=== PATIENT | male | born 1960 | race Hispanic/Latino ===

== ENCOUNTER → 2018-03-10 | Day surgery (SDC) | payer BC ==
[~2018-03-10] MED LIST: ASPIR 8181 MG PO; AZOR PO; BENICAR20 MG PO; BUPIVACAINE 0.5%/EPI 30 ML SDV INJ ONE; BYSTOLIC10 MG PO; CEFAZOLIN SOD 2 GM/D5W 50ML 50 ML IV ONE; DEXAMETHASONE SOD PHOS INJ 4 MG/ML VIAL ONE; EPHEDRINE SULFATE INJ 50 MG/10 ML SYR ONE; FENTANYL CITRATE/PF 100MCG/2 ML INJ ONE; KETOROLAC TROMETHAMINE 30 MG/ML VIAL ONE; LIDOCAINE HCL 2% LOCAL INJ 5 ML SDV VIAL INJ ONE; LOSARTAN POTASS25 MG PO; MIDAZOLAM HCL 2 MG/2 ML VIAL ONE; ONDANSETRON HCL INJ 2 MG/ML VIAL ONE; PROPOFOL IV EMULSION 10 MG/ML 20 ML VIAL ONE; SEVOFLURANE INHAL SOLN 250 ML PEN BTL ONE
--- NOTE | 2018-03-10 13:03 | Operative Report ---
DATE OF PROCEDURE: March 10, 2018 PREOPERATIVE DIAGNOSES 1. Right knee medial meniscus tear. 2. Right knee degenerative joint disease of the knee. POSTOPERATIVE DIAGNOSES 1. Right knee medial meniscus tear. 2. Right knee degenerative joint disease of the knee. PROCEDURES PERFORMED 1. Right knee examination under anesthesia. 2. Right knee arthroscopy. 3. Right knee partial medial meniscectomy. 4. Right knee chondroplasties of the patella, trochlea, the medial femoral condyle, the medial tibial plateau. TICKET AGENT: None. ANESTHESIA: General endotracheal intubation anesthesia. IV FLUIDS: Per the anesthesia record. DESCRIPTION OF PROCEDURE AND FINDINGS: Mr. Mariano was taken to the operating room and placed in the supine position on the operating table. Following induction of general anesthesia as well as endotracheal intubation, the patient's right lower extremity was examined under anesthesia. He was found to have a mild effusion within the knee joint but an otherwise ligamentously stable knee. The patient's lower extremity was prepped and draped in the standard surgical fashion. A 2-portal technique was used to provide this patient arthroscopic evaluation of the knee joint. Examination of the suprapatellar pouch, medial and lateral gutters found no evidence of loose bodies. There was, however, evidence of chondromalacia of the patellar and trochlear surfaces. Scope was advanced to the medial compartment. Examination of the medial compartment demonstrated a torn and macerated medial meniscus. There was also chondromalacia of the articulating surfaces. A combination of biting forceps and motorized shaver was used to resect the torn portion of the meniscus. Chondroplasties of the medial femoral condyle and medial tibial plateau were performed at this time. Scope was advanced to the intercondylar notch. The anterior cruciate was identified and found to be intact. Scope was advanced in the lateral compartment, and there was no significant pathology. The scope was placed in the suprapatellar pouch, and chondroplasties of the patella and trochlea were performed. The knee was deflated of its sterile normal saline. Each of the portal sites were closed using 4-0 nylon suture. Portal sites as well as knee itself were injected with 0.5% Marcaine with epinephrine. Sterile dressings were applied. The patient was awakened and taken to the postanesthesia care unit in stable condition. Job#: [id number]
== END | disposition home or self-care (01) ==
LOC: OR 05:26
PROVIDERS: ATTEND Specialist
DX: S83.221A Peripheral tear of medial meniscus, current injury, right knee, initial encounter (principal); M17.11 Unilateral primary osteoarthritis, right knee; M22.41 Chondromalacia patellae, right knee; Z96.652 Presence of left artificial knee joint; I10 Essential (primary) hypertension; I44.7 Left bundle-branch block, unspecified; Z01.810 Encounter for preprocedural cardiovascular examination; Z79.82 Long term (current) use of aspirin; Z68.41 Body mass index [BMI] 40.0-44.9, adult
CPT/HCPCS: 29881; 93005; J1100; J1885; J2001; J2250; J2405

== ENCOUNTER 2019-02-24 19:24 | Emergency (ER) | payer BC ==
[~2019-02-24] VITALS: Ht 167.6 cm; Wt 108.9 kg
[~2019-02-24 19:24] MED LIST changes: -BUPIVACAINE 0.5%/EPI 30 ML SDV INJ ONE; -CEFAZOLIN SOD 2 GM/D5W 50ML 50 ML IV ONE; -DEXAMETHASONE SOD PHOS INJ 4 MG/ML VIAL ONE; -EPHEDRINE SULFATE INJ 50 MG/10 ML SYR ONE; -FENTANYL CITRATE/PF 100MCG/2 ML INJ ONE; -KETOROLAC TROMETHAMINE 30 MG/ML VIAL ONE; -LIDOCAINE HCL 2% LOCAL INJ 5 ML SDV VIAL INJ ONE; -MIDAZOLAM HCL 2 MG/2 ML VIAL ONE; -ONDANSETRON HCL INJ 2 MG/ML VIAL ONE; -PROPOFOL IV EMULSION 10 MG/ML 20 ML VIAL ONE; -SEVOFLURANE INHAL SOLN 250 ML PEN BTL ONE
--- OUTSIDE RECORDS SUMMARY | 2019-02-24 19:27 | XMS REPORT | Continuity of Care Document ---
Author Author [facility] Interface Address Unknown Phone Unavailable Problems Problem Status Onset Date Classification Date Reported Comments Source UNK Active 03/12/2016 [facility] Arthritis<sup>1</sup> Active Problem 07/05/2016 left knee [facility] [place] Hypertension Active Problem 07/05/2016 [facility] [place] Final: Other infective bursitis, right elbow 03/30/2016 [facility]- LT TKR Active [facility] [place] OTHER INFECTIVE BURSITIS, LEFT KNEE Active [facility] OTHER INFECTIVE BURSITIS, RIGHT ELBOW Active [facility] LT KNEE Active [facility] [place] LEFT KNEE Active [facility] [place] ADHESIVE CAPSULITIS OF RIGHT SHOULDER Active [facility] COMPLETE ROTATR-CUFF TEAR/RUPTR OF R LUCINDA Active [facility] JOINT CAMP Active [facility] [place] Medications Medication Details Route Status Patient Instructions Ordering Provider Order Date Source Benicar 40 mg, 2 tab, Route: PO, Drug form: TAB, Daily, Start date: 03/27/16 13:00:00 CDT, Duration: 30 day, Stop date: 04/26/16 9:00:00 CDT Inactive 03/27/2016 [facility] hydrochlorothiazide 25 mg oral tablet 25 mg, 1 tab, Route: PO, Drug form: TAB, Daily, Start date: 03/27/16 13:00:00 CDT, Duration: 30 day, Stop date: 04/26/16 9:00:00 CDTNotes: (Same as: Hydrodiuril) With food. Inactive 03/27/2016 [facility] Dulcolax Laxative 5 mg, 1 tab, Route: PO, Drug form: ECTAB, Q6H, Dosing Weight 118.182, kg, PRN Constipation, Start date: 03/27/16 12:29:00 CDT, Duration: 30 day, Stop date: 04/26/16 12:28:00 CDTNotes: (Same As: Dulcolax , Correctol) (Do Not Crush) "Do Not Crush" Inactive 03/27/2016 [facility] Hydrochlorothiazide 25 MG / Olmesartan medoxomil 40 MG Oral Tablet [Benicar HCT 40/25] 1 tab, Route: PO, Drug Form: TAB, Dosing Weight 118.182, kg, Daily, NOW, Start date: 03/27/16 12:24:00 CDT, Duration: 30 day, Stop date: 04/26/16 9:00:00 CDT Inactive 03/27/2016 [facility] Acetaminophen 325 MG / Hydrocodone Bitartrate 7.5 MG Oral Tablet [Yale 7.5/325] See Instructions, 1-2 tab PO Q4-6H as needed, # 60 tab, 0 Refill(s), given to patient Active 03/27/2016 [facility] Acetaminophen 325 MG / Hydrocodone Bitartrate 7.5 MG Oral Tablet [Yale 7.5/325] 1 tab, Route: PO, Drug Form: TAB, Dosing Weight 118.182, kg, Q4H, PRN Pain Score 4-6, Start date: 03/27/16 8:47:00 CDT, Duration: 30 day, Stop date: 04/26/16 8:46:00 CDTNotes: Same as Yale 325-7.5mg Do not exceed 4gm/day of acetaminophen. Inactive 03/27/2016 [facility] Phenergan 25 mg, 1 mL, Route: IVPB, Q4H, Dosing Weight 118.182, kg, PRN Itching, Start date: 03/26/16 12:37:00 CDT, Duration: 3 day, Stop date: 03/29/16 12:36:00 CDTNotes: Do not give IV push. (Same as: Phene rgan) No Longer Active 03/26/2016 [facility] Bystolic 10 mg, 1 tab, Route: PO, Drug form: TAB, Daily, Dosing Weight 118.182, kg, Start date: 03/26/16 9:00:00 CDT, Duration: 30 day, Stop date: 04/24/16 9:00:00 CDTNotes: (same as: Bystolic) No Longer Active 03/26/2016 [facility] Acetaminophen 325 MG / Hydrocodone Bitartrate 7.5 MG Oral Tablet [Yale 7.5/325] 2 tab, Route: PO, Drug Form: TAB, Dosing Weight 118.182, kg, Q4H, PRN Pain Score 7-10, Start date: 03/26/16 7:54:00 CDT, Duration: 1 day, Stop date: 03/27/16 7:53:00 CDTNotes: Same as Yale 325-7.5mg Do not exceed 4gm/day of acetaminophen. No Longer Active 03/26/2016 [facility] Enoxaparin 40 mg, Route: SUB-Q, Drug form: INJ, [id number], Dosing Weight 118.182, kg, Consider for obese patients, Start date: 03/26/16 1:43:00 CDT, Duration: 30 day, Stop date: 04/24/16 13:43:00 CDT No Longer Active 03/26/2016 [facility] Ambien 5 mg, 1 tab, Route: PO, Drug form: TAB, Bedtime, Start date: 03/25/16 21:00:00 CDT, Duration: 30 day, Stop date: 04/23/16 21:00:00 CDTNotes: (Same As: Ambien) No Longer Active 03/26/2016 [facility] Lunesta 3 mg, Route: PO, Bedtime, Dosing Weight 118.182, kg, Start date: 03/25/16 21:00:00 CDT, Duration: 30 day, Stop date: 04/23/16 21:00:00 CDT Inactive 03/26/2016 [facility] ceFAZolin (SCIP) 1 gm, 100 mL, Route: IVPB, Drug form: INJ, Q6H, Dosing Weight 118.182, kg, Start date: 03/25/16 18:00:00 CDT, Duration: 3 doses or times, Stop date: 03/26/16 6:00:00 CDT No Longer Active 03/25/2016 [facility] Docusate 100 mg, 1 cap, Route: PO, Drug form: CAP, BID, Dosing Weight 118.182, kg, Start date: 03/25/16 17:00:00 CDT, Duration: 30 day, Stop date: 04/24/16 9:00:00 CDTNotes: (Same as: Colace) (Do Not Crush) No Longer Active 03/25/2016 [facility] ondansetron (ANES) Route: IV, Drug form: INJ, ONCE, Stop date: 03/25/16 14:00:00 CDT Inactive 03/25/2016 [facility] Hydromorphone 15 mg, 30 mL, Route: IV, Initial Loading Dose: 0 mg, METAL HARDENER Dose: 0.2 mg, METAL HARDENER Lockout: 8 minutes, Continuous Basal Rate: 0 mg, 4 Hour Limit (In MG): 6, Drug Form: INJ, Continuous, Start date: 03/25/16 1 4:00:00 CDT, Duration: 30 day, Stop date: 04/24/16 1...Notes: (Same as: Dilaudid) conc=0.5 mg/ml Hydromorphone METAL HARDENER Dose: ;Delay: ;Basal: No Longer Active 03/25/2016 [facility] Enoxaparin 30 mg, 0.3 mL, Route: SUB-Q, Drug form: INJ, [id number], Dosing Weight 118.182, kg, Start date: 03/25/16 14:00:00 CDT, Duration: 30 day, Stop date: 04/24/16 6:00:00 CDTNotes: (Same as: Lovenox) No Longer Active 03/25/2016 [facility] tranexamic acid (ANES) Route: IV, Drug form: INJ, ONCE, Stop date: 03/25/16 13:55:00 CDT Inactive 03/25/2016 [facility] Hydromorphone 0.3 mg, 0.3 mL, Route: IVP, Drug form: INJ, Q4H, Dosing Weight 118.182, kg, PRN Pain Score 7-10, Start date: 03/25/16 13:41:00 CDT, Duration: 30 day, Stop date: 04/24/16 13:40:00 CDT No Longer Active 03/25/2016 [facility] Ondansetron 4 mg, 2 mL, Route: IVP, Drug form: INJ, Q8H, Dosing Weight 118.182, kg, PRN Nausea & Vomiting, Start date: 03/25/16 13:41:00 CDT, Duration: 30 day, Stop date: 04/24/16 13:40:00 CDTNotes: (Same as: Zofran) MEDICATION WASTE Product Size: 4 mg Product Wasted: ___ mg No Longer Active 03/25/2016 [facility] Diphenhydramine 50 mg, 1 cap, Route: PO, Drug form: CAP, Q6H, Dosing Weight 118.182, kg, PRN Itching, Start date: 03/25/16 13:41:00 CDT, Stop date: 04/24/16 13:40:00 CDTNotes: (Same as: Benadryl) No Longer Active 03/25/2016 [facility] Al hydroxide/Mg hydroxide/simethicone 200 mg-200 mg-20 mg/5 mL oral suspension 30 mL, Route: PO, Drug Form: SUSP, Dosing Weight 118.182, kg, Q4H, PRN Indigestion, Start date: 03/25/16 13:41:00 CDT, Duration: 30 day, Stop date: 04/24/16 13:40:00 CDTNotes: (aluminum hydroxide-magnesium hyd- simethicone [phone]/5ml 30 ml ud BEAU) No Longer Active 03/25/2016 [facility] Naloxone 0.04 mg, 0.1 mL, Route: IVP, Drug form: INJ, Q2MIN, Dosing Weight 118.182, kg, PRN Narcotic Reversal, Start date: 03/25/16 13:41:00 CDT, Duration: 30 day, Stop date: 04/24/16 13:40:00 CDTNotes: Same as Narcan No Longer Active 03/25/2016 [facility] Acetaminophen 325 MG / Hydrocodone Bitartrate 7.5 MG Oral Tablet [Yale 7.5/325] 2 tab, Route: PO, Drug Form: TAB, Dosing Weight 118.182, kg, Q4H, PRN Pain Score 7-10, Start date: 03/25/16 13:41:00 CDT, Duration: 30 day, Stop date: 04/24/16 13:40:00 CDTNotes: Same as Yale 325-7.5mg Do not exceed 4gm/day of acetaminophen. No Longer Active 03/25/2016 [facility] Tylenol 650 mg, 2 tab, Route: PO, Drug form: TAB, Q6H, Dosing Weight 118.182, kg, PRN For Temp > 100.4 F, Start date: 03/25/16 13:41:00 CDT, Duration: 30 day, Stop date: 04/24/16 13:40:00 CDTNotes: Do not exceed 4 gm/day. (Same as: Tylenol) No Longer Active 03/25/2016 [facility] Lactated Ringers 1,000 mL 1,000 mL, Rate: 75 ml/hr, Infuse over: 13.3 hr, Route: IV, Dosing Weight 118.182 kg, Total Volume: 1,000, Start date: 03/25/16 13:41:00 CDT, Duration: 30 day, Stop date: 04/24/16 13:40:00 CDT No Longer Active 03/25/2016 [facility] hydromorphone (ANES) Route: INTRATHECAL, Drug form: INJ, ONCE, Stop date: 03/25/16 13:39:00 CDT Inactive 03/25/2016 [facility] acetaminophen (ANES) Route: IV, Drug form: INJ, ONCE, Stop date: 03/25/16 13:29:00 CDT Inactive 03/25/2016 [facility] ePHEDrine (ANES) Route: IV, Drug form: INJ, ONCE, Stop date: 03/25/16 13:24:00 CDT Inactive 03/25/2016 [facility] ceFAZolin (ANES) Route: IV, Drug form: INJ, ONCE, Stop date: 03/25/16 13:19:00 CDT Inactive 03/25/2016 [facility] lidocaine (ANES) Route: IV, Drug form: INJ, ONCE, Stop date: 03/25/16 13:19:00 CDT Inactive 03/25/2016 [facility] propofol (ANES) Route: IV, Drug form: INJ, ONCE, Stop date: 03/25/16 13:19:00 CDT Inactive 03/25/2016 [facility] LR 1000 mL INJ (ANES) Route: IV, Total Volume: 1,000, Start date: 03/25/16 12:18:00 CDT, Stop date: 03/25/16 13:18:00 CDT Inactive 03/25/2016 [facility] Ancef 2 gm, 100 mL, Route: IVPB, Drug form: INJ, ONCE, Dosing Weight 118.182, kg, Start date: 03/25/16 9:12:00 CDT, Duration: 1 doses or times, Stop date: 03/25/16 9:12:00 CDTNotes: Same as: Ancef Inactive 03/25/2016 [facility] Calcium Chloride 0.0014 MEQ/ML / Potassium Chloride 0.004 MEQ/ML / Sodium Chloride 0.103 MEQ/ML / Sodium Lactate 0.028 MEQ/ML Injectable Solution 1,000 mL, Rate: 25 ml/hr, Infuse over: 40 hr, Route: IV, Dosing Weight 118.182 kg, Total Volume: 1,000, Start date: 03/25/16 9:10:00 CDT, Duration: 30 day, Stop date: 04/24/16 9:09:00 CDT Inactive 03/25/2016 [facility] Diazepam 5 MG Oral Tablet [Valium] 5 mg=1 tab, PO, QID, PRN Spasm, # 30 tab, 0 Refill(s) Active 03/25/2016 [facility] 0.3 ML Enoxaparin sodium 100 MG/ML Prefilled Syringe [Lovenox] 30 mg, SUB-Q, Q12H, X 14 day, # 28 inj, 0 Refill(s) Active 03/25/2016 [facility] Eszopiclone 3 MG Oral Tablet [Lunesta] 3 mg=1 tab, PO, Bedtime, PRN for insomnia, # 30 tab, 0 Refill(s) Active 03/25/2016 [facility] Cephalexin 500 MG Oral Capsule [Keflex] 500 mg=1 cap, PO, QID, X 10 day, # 40 cap, 0 Refill(s) Active 03/25/2016 [facility] Hydrochlorothiazide 25 MG / Olmesartan medoxomil 40 MG Oral Tablet [Benicar HCT 40/25] 1 tab, PO, Daily, # 30 tab, 0 Refill(s) Active 03/13/2016 [facility] nebivolol 10 MG Oral Tablet [Bystolic] 10 mg=1 tab, PO, Daily, # 30 tab, 0 Refill(s) Active 03/13/2016 [facility] Ketorolac 15 mg, 1 mL, Route: IVP, Drug form: INJ, Q6H, Dosing Weight 118.182, kg, Start date: 12/20/15 12:00:00, Duration: 6 doses or times, Stop date: 12/21/15 18:00:00Notes: (Same as:Toradol) IV bolus must be given >15 seconds. Give IM administration slowly and deeply into the muscle. Not for use > 4 days. Inactive 12/20/2015 [facility] Flumazenil 0.2 mg, 2 mL, Route: IVP, Drug form: INJ, PRN, Dosing Weight 118.182, kg, PRN Benzodiazepine Reversal, Initial dose, Start date: 12/20/15 8:02:00, Duration: 30 day, Stop date: 01/19/16 8:01:00Notes: (Same as: Romazicon) Inactive 12/20/2015 [facility] Naloxone 0.04 mg, 0.1 mL, Route: IVP, Drug form: INJ, Q2MIN, Dosing Weight 118.182, kg, PRN Narcotic Reversal, Start date: 12/20/15 8:02:00, Duration: 8 doses or times, Stop date: Limited # of timesNotes: Same as Narcan Inactive 12/20/2015 [facility] Oxycodone 5 mg, 1 tab, Route: PO, Drug form: TAB, Q4H, Dosing Weight 118.182, kg, PRN Pain Score 4-6, Start date: 12/20/15 8:02:00, Duration: 30 day, Stop date: 01/19/16 8:01:00Notes: (Same as: Roxicodone) Inactive 12/20/2015 [facility] Ketorolac 15 mg, 1 mL, Route: IVP, Drug form: INJ, ONCE, Dosing Weight 118.182, kg, Start date: 12/20/15 8:02:00, Duration: 1 doses or times, Stop date: 12/20/15 8:02:00Notes: (Same as:Toradol) IV bolus must be given >15 seconds. Give IM administration slowly and deeply into the muscle. Not for use > 4 days. Inactive 12/20/2015 [facility] Fentanyl 50 microgram, 1 mL, Route: IVP, Drug form: INJ, Q5Min, Dosing Weight 118.182, kg, PRN Pain Score 7-10, Start date: 12/20/15 8:02:00, Duration: 2 doses or times, Stop date: Limited # of timesNotes: (Same as: Sublimaze) Preservative free. Inactive 12/20/2015 [facility] Hydromorphone 0.5 mg, 0.5 mL, Route: IVP, Drug form: INJ, Q5Min, Dosing Weight 118.182, kg, PRN Pain Score 7-10, Start date: 12/20/15 8:02:00, Duration: 4 doses or times, Stop date: Limited # of times Inactive 12/20/2015 [facility] Ondansetron 4 mg, 2 mL, Route: IVP, Drug form: INJ, ONCE, Dosing Weight 118.182, kg, PRN Nausea & Vomiting, Start date: 12/20/15 8:02:00Notes: (Same as: Zofran) MEDICATION WASTE Product Size: 4 mg Product Wasted: ___ mg Inactive 12/20/2015 [facility] Hydralazine 10 mg, 0.5 mL, Route: IVP, Drug form: INJ, Q20Min, Dosing Weight 118.182, kg, PRN Elevated BP, Start date: 12/20/15 8:02:00, Duration: 2 doses or times, Stop date: Limited # of timesNotes: (Same as: Apresoline) Push over 5 minutes Inactive 12/20/2015 [facility] Labetalol 10 mg, 2 mL, Route: IVP, Drug form: INJ, Q5Min, Dosing Weight 118.182, kg, PRN Elevated BP, Start date: 12/20/15 8:02:00, Duration: 5 doses or times, Stop date: Limited # of timesNotes: (Same as: Normod yne, Trandate) Push over 2 minutes Give bolus over 2-3 minutes. Inactive 12/20/2015 [facility] ePHEDrine (ANES) Route: IV, Drug form: INJ, ONCE, Stop date: 12/20/15 7:05:00 Inactive 12/20/2015 [facility] ketOROLAC (ANES) IV, ONCE Inactive 12/20/2015 [facility] Morphine 2 mg, 1 mL, Route: IVP, Drug form: INJ, Q3H, Dosing Weight 118.182, kg, PRN Pain Score 1-3, Start date: 12/20/15 7:02:00, Duration: 30 day, Stop date: 01/19/16 7:01:00Notes: (Same as:MORPhine Sulfate) Inactive 12/20/2015 [facility] Hydromorphone 0.3 mg, 0.3 mL, Route: IVP, Drug form: INJ, Q3H, Dosing Weight 118.182, kg, PRN Pain Score 4-6, Start date: 12/20/15 7:02:00, Duration: 30 day, Stop date: 01/19/16 7:01:00 Inactive 12/20/2015 [facility] Acetaminophen 325 MG / Hydrocodone Bitartrate 5 MG Oral Tablet 1 tab, Route: PO, Drug Form: TAB, Dosing Weight 118.182, kg, Q4H, PRN Pain Score 4-6, Start date: 12/20/15 7:02:00, Duration: 30 day, Stop date: 01/19/16 7:01:00Notes: (Same as: Yale 325/5) Do not exceed 4gm/day of acetaminophen. Inactive 12/20/2015 [facility] Phenergan 12.5 mg, 0.5 mL, Route: IVPB, Q4H, Dosing Weight 118.182, kg, PRN Nausea & Vomiting, Start date: 12/20/15 7:02:00, Duration: 30 day, Stop date: 01/19/16 7:01:00Notes: Do not give IV push. (Same as: Phenergan) Inactive 12/20/2015 [facility] Zofran 4 mg, 2 mL, Route: IV, Drug form: INJ, Q4H, Dosing Weight 118.182, kg, PRN Nausea, Start date: 12/20/15 7:02:00, Duration: 30 day, Stop date: 01/19/16 7:01:00Notes: (Same as: Zofran) MEDICATION WASTE Product Size: 4 mg Product Wasted: ___ mg Inactive 12/20/2015 [facility] Tramadol 50 mg, 1 tab, Route: PO, Drug form: TAB, Q6H, Dosing Weight 118.182, kg, PRN Pain Score 1-3, Start date: 12/20/15 7:02:00, Duration: 30 day, Stop date: 01/19/16 7:01:00Notes: Not to exceed 400mg/day. (Same As: Ultram) Inactive 12/20/2015 [facility] ondansetron (ANES) Route: IV, Drug form: INJ, ONCE, Stop date: 12/20/15 7:01:00 Inactive 12/20/2015 [facility] fentaNYL (ANES) Route: IV, Drug form: INJ, ONCE, Stop date: 12/20/15 6:51:00 Inactive 12/20/2015 [facility] propofol (ANES) Route: IV, Drug form: INJ, ONCE, Stop date: 12/20/15 6:51:00 Inactive 12/20/2015 [facility] midazolam (ANES) Route: IV, Drug form: SOLN, ONCE, Stop date: 12/20/15 6:51:00 Inactive 12/20/2015 [facility] lidocaine (ANES) Route: IV, Drug form: INJ, ONCE, Stop date: 12/20/15 6:51:00 Inactive 12/20/2015 [facility] ceFAZolin (ANES) Route: IV, Drug form: INJ, ONCE, Stop date: 12/20/15 6:51:00 Inactive 12/20/2015 [facility] Calcium Chloride 0.0014 MEQ/ML / Potassium Chloride 0.004 MEQ/ML / Sodium Chloride 0.103 MEQ/ML / Sodium Lactate 0.028 MEQ/ML Injectable Solution 1,000 mL, Rate: 25 ml/hr, Infuse over: 40 hr, Route: IV, Dosing Weight 118.182 kg, Total Volume: 1,000, Start date: 12/20/15 6:46:00, Duration: 30 day, Stop date: 01/19/16 6:45:00 Inactive 12/20/2015 [facility] Lactated Ringers Injection IV (ANES) (ANES) Route: IV, Total Volume: 1,000, Start date: 12/20/15 6:17:00, Stop date: 12/20/15 7:17:00 Inactive 12/20/2015 [facility] Cephalexin 500 MG Oral Capsule [Keflex] 500 mg=1 cap, PO, QID, X 10 day, # 40 cap, 0 Refill(s) Active 12/20/2015 [facility] Ancef 2 gm, 100 mL, Route: IVPB, Drug form: INJ, ONCE, Dosing Weight 118.182, kg, Start date: 12/20/15 5:20:00, Duration: 1 doses or times, Stop date: 12/20/15 5:20:00Notes: Same as: Ancef Inactive 12/20/2015 [facility] Allopurinol 0 Refill(s) Active 12/11/2015 [facility] Allergies, Adverse Reactions, Alerts Substance Category Reaction Severity Reaction type Status Date Reported Comments Source Immunizations Immunization Date Given Site Status Last Updated Comments Source pneumococcal 23-valent vaccine 03/27[facility]2016 [facility] Results Order Name Results Value Reference Range Date Interpretation Comments Source HEMATOLOGY Lymphocytes 15.4 % 20.0 - 40.0 03/27/2016 [facility] HEMATOLOGY Monocytes 11.5 % 2.0 - 12.0 03/27/2016 [facility] HEMATOLOGY Basophils 0.6 % 0.0 - 1.0 03/27/2016 [facility] Segs-Bands # 8.5 K/CMM 1.5 - 8.1 03/27/2016 [facility] Eosinophils 0.9 % 0.0 - 4.0 03/27/2016 [facility] Lymphocytes # 1.8 K/CMM 1.0 - 5.5 03/27/2016 [facility] Monocytes # 1.4 K/CMM 0.0 - 0.8 03/27/2016 [facility] Eosinophils # 0.1 K/CMM 0.0 - 0.5 03/27/2016 [facility] Basophils # 0.1 K/CMM 0.0 - 0.2 03/27/2016 [facility] Segs 71.6 % 45.0 - 75.0 03/27/2016 [facility] WBC 11.8 K/CMM 3.7 - 10.4 03/27/2016 [facility] Platelet 156 K/CMM 133 - 450 03/27/2016 [facility] MPV 8.6 fL 7.4 - 10.4 03/27/2016 [facility] RBC 3.83 M/CMM 4.70 - 6.10 03/27/2016 [facility] Hgb 11.4 g/dL 14.0 - 18.0 03/27/2016 [facility] Hct 34.8 % 42.0 - 54.0 03/27/2016 [facility] MCV 90.8 fL 80.0 - 94.0 03/27/2016 [facility] MCH 29.7 pg 27.0 - 31.0 03/27/2016 [facility] MCHC 32.7 g/dL 32.0 - 36.0 03/27/2016 [facility] RDW 13.6 % 11.5 - 14.5 03/27/2016 [facility] CHEM PANEL eGFR 57 mL/min/1.73m2 03/26/2016 Result Comment: The eGFR is calculated using the CKD-EPI formula. In most young, healthy individuals the eGFR will be >90 mL/min/1.73m2. The eGFR declines with age. An eGFR of 60-89 may be normal in some populations, particularly the elderly, for whom the CKD-EPI formula has not been extensively validated. Use of the eGFR is not recommended in the following populations: Individuals with unstable creatinine concentrations, including patients and those with serious co-morbid conditions. Patients with extremes in muscle mass or diet. The data above are obtained from the National Kidney Disease Education Program (NKDEP) which additionally recommends that when the eGFR is used in patients with extremes of body mass index for purposes of drug dosing, the eGFR should be multiplied by the estimated BMI. [facility] CHEM PANEL Creatinine Lvl 1.36 mg/dL 0.50 - 1.40 03/26/2016 [facility] Lymphocytes # 0.8 K/CMM 1.0 - 5.5 03/26/2016 [facility] Monocytes # 0.7 K/CMM 0.0 - 0.8 03/26/2016 [facility] Segs 85.5 % 45.0 - 75.0 03/26/2016 [facility] Lymphocytes 7.8 % 20.0 - 40.0 03/26/2016 [facility] Monocytes 6.6 % 2.0 - 12.0 03/26/2016 [facility] Basophils 0.1 % 0.0 - 1.0 03/26/2016 [facility] Segs-Bands # 9.2 K/CMM 1.5 - 8.1 03/26/2016 [facility] PTT 30.0 s 22.9 - 35.8 03/26/2016 [facility] Hgb 12.2 g/dL 14.0 - 18.0 03/26/2016 [facility] Hct 36.0 % 42.0 - 54.0 03/26/2016 [facility] MCV 90.7 fL 80.0 - 94.0 03/26/2016 [facility] MCH 30.6 pg 27.0 - 31.0 03/26/2016 [facility] MCHC 33.7 g/dL 32.0 - 36.0 03/26/2016 [facility] RDW 13.1 % 11.5 - 14.5 03/26/2016 [facility] HEMATOLOGY Platelet 173 K/CMM 133 - 450 03/26/2016 [facility] MPV 8.8 fL 7.4 - 10.4 03/26/2016 [facility] RBC 3.98 M/CMM 4.70 - 6.10 03/26/2016 [facility] WBC 10.7 K/CMM 3.7 - 10.4 03/26/2016 [facility] Knee 1-2 Views unilateral DX Knee 1-2 Views unilateral DX Knee 1-2 Views unilateral DX CLINICAL HISTORY: Joint deformities FINDINGS/IMPRESSION: 2 views left knee demonstrate the patient to be status post arthroplasty. Hardware in good position. Expected postsurgical changes within the skin and soft tissues. SL: [id number] 03/25/2016 - - Read by: Sterling Coates MD Dictated Date/time: 03/25/16 16:35 Electronically Signed by: Sterling Coates MD 03/25/16 16:35 FINAL REPORT [facility] BLOOD [facility] RESULTS Antibody Scrn Negative (03/25/16 8:34 AM) 03/25/2016 [facility] BLOOD BANK RESULTS ABO/Rh O POS 03/25/2016 [facility] RESULTS Antibody Scrn Negative (03/13/16 1:46 PM) 03/13/2016 [facility] BLOOD BANK RESULTS ABO/Rh O POS 03/13/2016 [facility] CHEM PANEL eGFR 75 mL/min/1.73m2 03/13/2016 Result Comment: The eGFR is calculated using the CKD-EPI formula. In most young, healthy individuals the eGFR will be >90 mL/min/1.73m2. The eGFR declines with age. An eGFR of 60-89 may be normal in some populations, particularly the elderly, for whom the CKD-EPI formula has not been extensively validated. Use of the eGFR is not recommended in the following populations: Individuals with unstable creatinine concentrations, including patients and those with serious co-morbid conditions. Patients with extremes in muscle mass or diet. The data above are obtained from the National Kidney Disease Education Program (NKDEP) which additionally recommends that when the eGFR is used in patients with extremes of body mass index for purposes of drug dosing, the eGFR should be multiplied by the estimated BMI. [facility] CHEM PANEL Glucose Lvl 100 mg/dL 70 - 99 03/13/2016 [facility] CHEM PANEL Chloride Lvl 104 meq/L 95 - 109 03/13/2016 [facility] CHEM PANEL Potassium Lvl 3.6 meq/L 3.5 - 5.1 03/13/2016 [facility] CHEM PANEL Calcium Lvl 8.8 mg/dL 8.5 - 10.5 03/13/2016 [facility] CHEM PANEL CO2 27 meq/L 24 - 32 03/13/2016 [facility] CHEM PANEL BUN 12 mg/dL 7 - 22 03/13/2016 [facility] CHEM PANEL Sodium Lvl 141 meq/L 135 - 145 03/13/2016 [facility] CHEM PANEL Creatinine Lvl 1.09 mg/dL 0.50 - 1.40 03/13/2016 [facility] CHEM PANEL AGAP 13.6 meq/L 10.0 - 20.0 03/13/2016 [facility] HEMATOLOGY Basophils # 0.1 K/CMM 0.0 - 0.2 03/13/2016 [facility] HEMATOLOGY Eosinophils # 0.2 K/CMM 0.0 - 0.5 03/13/2016 [facility] HEMATOLOGY Eosinophils 1.8 % 0.0 - 4.0 03/13/2016 [facility] HEMATOLOGY Monocytes 10.2 % 2.0 - 12.0 03/13/2016 [facility] HEMATOLOGY Lymphocytes 23.2 % 20.0 - 40.0 03/13/2016 [facility] HEMATOLOGY Segs 64.0 % 45.0 - 75.0 03/13/2016 [facility] HEMATOLOGY Lymphocytes # 2.2 K/CMM 1.0 - 5.5 03/13/2016 [facility] HEMATOLOGY Segs-Bands # 5.9 K/CMM 1.5 - 8.1 03/13/2016 [facility] HEMATOLOGY Basophils 0.8 % 0.0 - 1.0 03/13/2016 [facility] HEMATOLOGY Monocytes # 0.9 K/CMM 0.0 - 0.8 03/13/2016 [facility] HEMATOLOGY PT 14.8 s 12.0 - 14.7 03/13/2016 [facility] HEMATOLOGY PTT 32.3 s 22.9 - 35.8 03/13/2016 [facility] HEMATOLOGY INR 1.13 0.85 - 1.17 03/13/2016 [facility] HEMATOLOGY MCHC 33.9 g/dL 32.0 - 36.0 03/13/2016 [facility] HEMATOLOGY MCH 30.6 pg 27.0 - 31.0 03/13/2016 [facility] RDW 13.4 % 11.5 - 14.5 03/13/2016 [facility] HEMATOLOGY Platelet 216 K/CMM 133 - 450 03/13/2016 [facility] MPV 9.1 fL 7.4 - 10.4 03/13/2016 [facility] Hgb 15.7 g/dL 14.0 - 18.0 03/13/2016 [facility] HEMATOLOGY RBC 5.12 M/CMM 4.70 - 6.10 03/13/2016 [facility] MCV 90.2 fL 80.0 - 94.0 03/13/2016 [facility] Hct 46.2 % 42.0 - 54.0 03/13/2016 [facility] WBC 9.3 K/CMM 3.7 - 10.4 03/13/2016 [facility] BLOOD BANK RESULTS RBC product Product available 1 (03/13/16 1:43 PM) 03/13/2016 Result Comment: 03/25/2016 09:50 [id number] Spoke with Blank [facility] CHEM PANEL eGFR 73 mL/min/1.73m2 12/11/2015 Result Comment: The eGFR is calculated using the CKD-EPI formula. In most young, healthy individuals the eGFR will be >90 mL/min/1.73m2. The eGFR declines with age. An eGFR of 60-89 may be normal in some populations, particularly the elderly, for whom the CKD-EPI formula has not been extensively validated. Use of the eGFR is not recommended in the following populations: Individuals with unstable creatinine concentrations, including patients and those with serious co-morbid conditions. Patients with extremes in muscle mass or diet. The data above are obtained from the National Kidney Disease Education Program (NKDEP) which additionally recommends that when the eGFR is used in patients with extremes of body mass index for purposes of drug dosing, the eGFR should be multiplied by the estimated BMI. [facility] CHEM PANEL Creatinine Lvl 1.12 mg/dL 0.50 - 1.40 12/11/2015 [facility] CHEM PANEL BUN 15 mg/dL 7 - 22 12/11/2015 [facility] CHEM PANEL CO2 29 meq/L 24 - 32 12/11/2015 [facility] CHEM PANEL Potassium Lvl 3.7 meq/L 3.5 - 5.1 12/11/2015 [facility] CHEM PANEL Sodium Lvl 140 meq/L 135 - 145 12/11/2015 [facility] CHEM PANEL Chloride Lvl 105 meq/L 95 - 109 12/11/2015 [facility] CHEM PANEL Glucose Lvl 96 mg/dL 70 - 99 12/11/2015 [facility] CHEM PANEL Calcium Lvl 8.6 mg/dL 8.5 - 10.5 12/11/2015 [facility] CHEM PANEL AGAP 9.7 meq/L 10.0 - 20.0 12/11/2015 [facility] HEMATOLOGY MPV 8.7 fL 7.4 - 10.4 12/11/2015 [facility] HEMATOLOGY Platelet 186 K/CMM 133 - 450 12/11/2015 [facility] MCH 30.2 pg 27.0 - 31.0 12/11/2015 [facility] MCHC 33.2 g/dL 32.0 - 36.0 12/11/2015 [facility] HEMATOLOGY RDW 13.3 % 11.5 - 14.5 12/11/2015 [facility] RBC 5.32 M/CMM 4.70 - 6.10 12/11/2015 [facility] MCV 90.8 fL 80.0 - 94.0 12/11/2015 [facility] Hct 48.4 % 42.0 - 54.0 12/11/2015 [facility] Hgb 16.1 g/dL 14.0 - 18.0 12/11/2015 [facility] WBC 6.1 K/CMM 3.7 - 10.4 12/11/2015 [facility] Eosinophils # 0.2 K/CMM 0.0 - 0.5 12/11/2015 [facility] Basophils 1.1 % 0.0 - 1.0 12/11/2015 [facility] HEMATOLOGY Segs-Bands # 3.3 K/CMM 1.5 - 8.1 12/11/2015 [facility] HEMATOLOGY Basophils # 0.1 K/CMM 0.0 - 0.2 12/11/2015 [facility] HEMATOLOGY Monocytes 12.1 % 2.0 - 12.0 12/11/2015 [facility] HEMATOLOGY Eosinophils 2.8 % 0.0 - 4.0 12/11/2015 [facility] HEMATOLOGY Monocytes # 0.7 K/CMM 0.0 - 0.8 12/11/2015 [facility] HEMATOLOGY Lymphocytes # 1.8 K/CMM 1.0 - 5.5 12/11/2015 [facility] HEMATOLOGY Segs 53.9 % 45.0 - 75.0 12/11/2015 [facility] HEMATOLOGY Lymphocytes 30.1 % 20.0 - 40.0 12/11/2015 [facility] Vital Signs Vital Sign Value Date Comments Source Systolic (mm Hg) 152 03/27/2016 [facility] Diastolic (mm Hg) 76 03/27/2016 [facility] Respitory Rate 16 03/27/2016 [facility] Temperature Oral (F) 99.1 F 03/27/2016 [facility] Heart Rate 94 03/27/2016 [facility] Systolic (mm Hg) 149 03/27/2016 [facility] Diastolic (mm Hg) 83 03/27/2016 [facility] Heart Rate 90 03/27/2016 [facility] Temperature Oral (F) 99.6 F 03/27/2016 [facility] Respitory Rate 16 03/27/2016 [facility] Temperature Oral (F) 100 F 03/27/2016 [facility] Heart Rate 98 03/27/2016 [facility] Respitory Rate 16 03/27/2016 [facility] Systolic (mm Hg) 115 03/27/2016 [facility] Diastolic (mm Hg) 61 03/27/2016 [facility] Weight 118.182 03/13/2016 [facility] BMI Calculated 42.05 03/13/2016 [facility] Height 167.64 cm 03/13/2016 [facility] Respitory Rate 18 12/20/2015 [facility] Systolic (mm Hg) 128 12/20/2015 [facility] Diastolic (mm Hg) 77 12/20/2015 [facility] Respitory Rate 14 12/20/2015 [facility] Systolic (mm Hg) 130 12/20/2015 [facility] Diastolic (mm Hg) 72 12/20/2015 [facility] Respitory Rate 14 12/20/2015 [facility] Systolic (mm Hg) 133 12/20/2015 [facility] Diastolic (mm Hg) 80 12/20/2015 [facility] Temperature Oral (F) 97.8 F 12/11/2015 [facility] Heart Rate 64 12/11/2015 [facility] Height 167.64 cm 12/11/2015 [facility] BMI Calculated 42.05 12/11/2015 [facility] Weight 118.182 12/11/2015 [facility] Encounters Location Location Details Encounter Type Encounter Number Reason For Visit Attending Provider ADM Date DC Date Status Source [facility] Day Surgery [id number] Roland King 12/20/2015 12/20/2015 [facility] Inpatient [id number] Roland King 03/25/2016 03/27/2016 [facility] [place] [facility] Patients [id number] Roland King 03/28/2016 04/27/2016 [facility] [place] [facility] [place] [facility] [id number] Roland King 04/30/2016 05/30/2016 [facility] [place] [facility] [place] [facility] [id number] Roland King 06/03/2016 07/03/2016 [facility] [place] Procedures Procedure Code Date Perfomer Comments Source Arthroscopy [id number] [facility] [place] Colonoscopy [id number] [facility] [place] Arthroscopy [id number] [facility] Colonoscopy [id number] [facility]
[2019-02-24] MEDS ORDERED: CEFTRIAXONE SOD 1 GM/NS 50 ML 50 ML IV ONE ×2 (19:28→20:00)
[2019-02-24] MEDS ORDERED: METHYLPREDNISOLONE SOD SUCC 125 MG/2ML VIAL IV ONE (19:28)
[2019-02-24] MEDS ORDERED: IPRATROPIUM BROMIDE 0.02% 2.5 ML NEB NEB STA (19:28)
[2019-02-24] MEDS ORDERED: ALBUTEROL SULF 0.083% NEB SOLN 3 ML NEB NEB STA (19:28)
--- OUTSIDE RECORDS SUMMARY | 2019-02-24 19:28 | XMS REPORT | Summary of Care ---
Author Author [facility] Address Unknown Phone Unavailable Encounter HQ Mark_olivia([facility]) [id number] Date(s): 03/28/16 - 04/26/16 [facility] Discharge Disposition: Home or Self Care Attending Physician: Roland King Vital Signs No data available for this section Problem List Condition Effective Dates Status Health Status Informant Arthritis(Confirmed) Active 1 Hypertension(Confirm Active ed) 1left knee Allergies, Adverse Reactions, Alerts Substance Reaction Severity Status NKDA Active Medications No data available for this section Results No data available for this section Immunizations Given and Recorded Vaccine Date Status Refusal Reason pneumococcal 23-valent vaccine 03/27/16 Given Procedures Procedure Date Related Diagnosis Body Site Arthroscopy Colonoscopy Social History Social History Type Response Alcohol Never, Previous treatment: None. Smoking Status Never smoker; Type: Cigarettes; Exposure to Tobacco Smoke None; Cigarette Smoking Last 365 Days No; Reg Smoking Cessation Counseling No Assessment and Plan No data available for this section
--- OUTSIDE RECORDS SUMMARY | 2019-02-24 19:28 | XMS REPORT | Summary of Care ---
Author Author [facility] Organization [facility] Address Unknown Phone Unavailable Encounter HU Flores([facility]) [id number] Date(s): 12/20/15 - 12/20/15 [facility] [address] [place] [address]- Discharge Disposition: Home Attending Physician: Roland King Referring Physician: Roland King Vital Signs 1 2 3 Most recent to oldest [Reference Range]: 167.64 cm (12/11/15 7:59 AM) Height 97.8 DegF (12/11/15 8:17 AM) Temperature Oral [96.4-99.1 DegF] 128/77 mmHg (12/20/15 8:45 AM) 130/72 mmHg (12/20/15 8:30 AM) 133/80 mmHg (12/20/15 8:15 AM) Blood Pressure [90-140/60-90 mmHg] 18 BRMIN (12/20/15 8:45 AM) 14 BRMIN (12/20/15 8:30 AM) 14 BRMIN (12/20/15 8:15 AM) Respiratory Rate [14-20 BRMIN] 64 bpm (12/11/15 8:17 AM) Peripheral Pulse Rate [60-100 bpm] 118.182 kg (12/11/15 7:59 AM) Weight 42.05 m2 (12/11/15 7:59 AM) Body Mass Index Problem List Condition Effective Dates Status Health Status Informant Arthritis(Confirmed) Active 1 Hypertension(Confirm Active ed) 1left knee Allergies, Adverse Reactions, Alerts Substance Reaction Severity Status NKDA Active Medications acetaminophen-hydrocodone 325 mg-5 mg oral tablet 1 tab, Route: PO, Drug Form: TAB, Dosing Weight 118.182, kg, Q4H, PRN Pain Score 4-6, Start date: 12/20/15 7:02:00, Duration: 30 day, Stop date: 01/19/16 7:01:00 Notes: (Same as: Otis 325/5) Do not exceed 4gm/day of acetaminophen. Start Date: 12/20/15 Stop Date: 12/20/15 Status: Discontinued allopurinol 0 Refill(s) Start Date: 12/11/15 Status: Ordered Ancef 2 gm, 100 mL, Route: IVPB, Drug form: INJ, ONCE, Dosing Weight 118.182, kg, Star t date: 12/20/15 5:20:00, Duration: 1 doses or times, Stop date: 12/20/15 5:20:0 0 Notes: Same as: Ancef Start Date: 12/20/15 Stop Date: 12/20/15 Status: Ordered ceFAZolin (ANES) Route: IV, Drug form: INJ, ONCE, Stop date: 12/20/15 6:51:00 Start Date: 12/20/15 Stop Date: 12/20/15 Status: Completed ePHEDrine (ANES) Route: IV, Drug form: INJ, ONCE, Stop date: 12/20/15 7:05:00 Start Date: 12/20/15 Stop Date: 12/20/15 Status: Completed fentaNYL 50 microgram, 1 mL, Route: IVP, Drug form: INJ, Q5Min, Dosing Weight 118.182, kg , PRN Pain Score 7-10, Start date: 12/20/15 8:02:00, Duration: 2 doses or times, Stop date: Limited # of times Notes: (Same as: Sublimaze) Preservative free. Start Date: 12/20/15 Stop Date: 12/20/15 Status: Discontinued fentaNYL (ANES) Route: IV, Drug form: INJ, ONCE, Stop date: 12/20/15 6:51:00 Start Date: 12/20/15 Stop Date: 12/20/15 Status: Completed flumazenil 0.2 mg, 2 mL, Route: IVP, Drug form: INJ, PRN, Dosing Weight 118.182, kg, PRN Be nzodiazepine Reversal, Initial dose, Start date: 12/20/15 8:02:00, Duration: 30 day, Stop date: 01/19/16 8:01:00 Notes: (Same as: Romazicon) Start Date: 12/20/15 Stop Date: 12/20/15 Status: Discontinued hydrALAZINE 10 mg, 0.5 mL, Route: IVP, Drug form: INJ, Q20Min, Dosing Weight 118.182, kg, IN N Elevated BP, Start date: 12/20/15 8:02:00, Duration: 2 doses or times, Stop da te: Limited # of times Notes: (Same as: Apresoline)Push over 5 minutes Start Date: 12/20/15 Stop Date: 12/20/15 Status: Discontinued hydromorphone 0.5 mg, 0.5 mL, Route: IVP, Drug form: INJ, Q5Min, Dosing Weight 118.182, kg, IN N Pain Score 7-10, Start date: 12/20/15 8:02:00, Duration: 4 doses or times, Sto p date: Limited # of times Start Date: 12/20/15 Stop Date: 12/20/15 Status: Discontinued hydromorphone 0.3 mg, 0.3 mL, Route: IVP, Drug form: INJ, Q3H, Dosing Weight 118.182, kg, PRN Pain Score 4-6, Start date: 12/20/15 7:02:00, Duration: 30 day, Stop date: 01/18 7:01:00 Start Date: 12/20/15 Stop Date: 12/20/15 Status: Discontinued Keflex 500 mg oral capsule 500 mg=1 cap, PO, QID, X 10 day, # 40 cap, 0 Refill(s) Start Date: 12/20/15 Stop Date: 12/30/15 Status: Ordered ketOROLAC 15 mg, 1 mL, Route: IVP, Drug form: INJ, ONCE, Dosing Weight 118.182, kg, Start date: 12/20/15 8:02:00, Duration: 1 doses or times, Stop date: 12/20/15 8:02:00 Notes: (Same as:Toradol) IV bolus must be given >15 seconds. Give IM administration slowly and deeply into the muscle. Not for use > 4 days. Start Date: 12/20/15 Stop Date: 12/20/15 Status: Discontinued ketOROLAC 15 mg, 1 mL, Route: IVP, Drug form: INJ, Q6H, Dosing Weight 118.182, kg, Start d ate: 12/20/15 12:00:00, Duration: 6 doses or times, Stop date: 12/21/15 18:00:00 Notes: (Same as:Toradol) IV bolus must be given >15 seconds. Give IM administration slowly and deeply into the muscle. Not for use > 4 days. Start Date: 12/20/15 Stop Date: 12/20/15 Status: Discontinued ketOROLAC (ANES) IV, ONCE Start Date: 12/20/15 Stop Date: 12/20/15 Status: Completed labetalol 10 mg, 2 mL, Route: IVP, Drug form: INJ, Q5Min, Dosing Weight 118.182, kg, PRN E levated BP, Start date: 12/20/15 8:02:00, Duration: 5 doses or times, Stop date: Limited # of times Notes: (Same as: Normodyne, Trandate)Push over 2 minutes Give bolus over 2-3 mi nutes. Start Date: 12/20/15 Stop Date: 12/20/15 Status: Discontinued Lactated Ringers Injection IV (ANES) (ANES) Route: IV, Total Volume: 1,000, Start date: 12/20/15 6:17:00, Stop date: 6 7:17:00 Start Date: 12/20/15 Stop Date: 12/20/15 Status: Completed Lactated Ringers Injection IV 1,000 mL 1,000 mL, Rate: 25 ml/hr, Infuse over: 40 hr, Route: IV, Dosing Weight 118.182 k g, Total Volume: 1,000, Start date: 12/20/15 6:46:00, Duration: 30 day, Stop sofya e: 01/19/16 6:45:00 Start Date: 12/20/15 Stop Date: 12/20/15 Status: Discontinued lidocaine (ANES) Route: IV, Drug form: INJ, ONCE, Stop date: 12/20/15 6:51:00 Start Date: 12/20/15 Stop Date: 12/20/15 Status: Completed midazolam (ANES) Route: IV, Drug form: SOLN, ONCE, Stop date: 12/20/15 6:51:00 Start Date: 12/20/15 Stop Date: 12/20/15 Status: Completed morphine Sulfate 2 mg, 1 mL, Route: IVP, Drug form: INJ, Q3H, Dosing Weight 118.182, kg, PRN Pain Score 1-3, Start date: 12/20/15 7:02:00, Duration: 30 day, Stop date: 01/19/16 7:01:00 Notes: (Same as:MORPhine Sulfate) Start Date: 12/20/15 Stop Date: 12/20/15 Status: Discontinued naloxone 0.04 mg, 0.1 mL, Route: IVP, Drug form: INJ, Q2MIN, Dosing Weight 118.182, kg, P RN Narcotic Reversal, Start date: 12/20/15 8:02:00, Duration: 8 doses or times, Stop date: Limited # of times Notes: Same as Narcan Start Date: 12/20/15 Stop Date: 12/20/15 Status: Discontinued ondansetron 4 mg, 2 mL, Route: IVP, Drug form: INJ, ONCE, Dosing Weight 118.182, kg, PRN Myron sea & Vomiting, Start date: 12/20/15 8:02:00 Notes: (Same as: Kerline) MEDICATION WASTE Product Size: 4 mgProduct Was aman: ___ mg Start Date: 12/20/15 Stop Date: 12/20/15 Status: Discontinued ondansetron (ANES) Route: IV, Drug form: INJ, ONCE, Stop date: 12/20/15 7:01:00 Start Date: 12/20/15 Stop Date: 12/20/15 Status: Completed oxyCODONE 5 mg, 1 tab, Route: PO, Drug form: TAB, Q4H, Dosing Weight 118.182, kg, PRN Pain Score 4-6, Start date: 12/20/15 8:02:00, Duration: 30 day, Stop date: 01/19/16 8:01:00 Notes: (Same as: Roxicodone) Start Date: 12/20/15 Stop Date: 12/20/15 Status: Discontinued oxyCODONE 10 mg, 2 tab, Route: PO, Drug form: TAB, Q4H, Dosing Weight 118.182, kg, PRN Jovani n Score 7-10, Start date: 12/20/15 8:02:00, Duration: 30 day, Stop date: 6 8:01:00 Notes: (Same as: Roxicodone) Start Date: 12/20/15 Stop Date: 12/20/15 Status: Discontinued Phenergan + Sodium Chloride 0.9% IV 50 mL 12.5 mg, 0.5 mL, Route: IVPB, Q4H, Dosing Weight 118.182, kg, PRN Nausea & Vomiting, Start date: 12/20/15 7:02:00, Duration: 30 day, Stop date: 01/19/16 7 :01:00 Notes: Do not give IV push. (Same as: Phenergan) Start Date: 12/20/15 Stop Date: 12/20/15 Status: Discontinued propofol (ANES) Route: IV, Drug form: INJ, ONCE, Stop date: 12/20/15 6:51:00 Start Date: 12/20/15 Stop Date: 12/20/15 Status: Completed tramadol 50 mg, 1 tab, Route: PO, Drug form: TAB, Q6H, Dosing Weight 118.182, kg, PRN Jovani n Score 1-3, Start date: 12/20/15 7:02:00, Duration: 30 day, Stop date: 01/19/16 7:01:00 Notes: Not to exceed 400mg/day. (Same As: Ultram) Start Date: 12/20/15 Stop Date: 12/20/15 Status: Discontinued Zofran 4 mg, 2 mL, Route: IV, Drug form: INJ, Q4H, Dosing Weight 118.182, kg, PRN Nause a, Start date: 12/20/15 7:02:00, Duration: 30 day, Stop date: 01/19/16 7:01:00 Notes: (Same as: Zofran) MEDICATION WASTE Product Size: 4 mgProduct Was aman: ___ mg Start Date: 12/20/15 Stop Date: 12/20/15 Status: Discontinued Results ELECTROLYTES Most recent to 1 oldest [Reference Range]: Sodium Lvl [135-145 140 mEq/L mEq/L] (12/11/15 8:03 AM) Potassium Lvl 3.7 mEq/L [3.5-5.1 mEq/L] (12/11/15 8:03 AM) Chloride Lvl [95-109 105 mEq/L mEq/L] (12/11/15 8:03 AM) CO2 [24-32 mEq/L] 29 mEq/L (12/11/15 8:03 AM) AGAP [10.0-20.0 9.7 mEq/L mEq/L] *LOW* (12/11/15 8:03 AM) CHEM PANEL Most recent to 1 oldest [Reference Range]: Creatinine Lvl 1.12 mg/dL [0.50-1.40 mg/dL] (12/11/15 8:03 AM) eGFR 73 mL/min/1.73m2 1 *NA* (12/11/15 8:03 AM) BUN [7-22 mg/dL] 15 mg/dL (12/11/15 8:03 AM) Glucose Lvl [70-99 96 mg/dL mg/dL] (12/11/15 8:03 AM) Calcium Lvl 8.6 mg/dL [8.5-10.5 mg/dL] (12/11/15 8:03 AM) 1Result Comment: The eGFR is calculated using the [...] from the National Kidney Disease Education Program ( NKDEP) which additionally recommends that when the eGFR is used in patients with extremes of body mass index for purposes of drug dosing, the eGFR should be mul tiplied by the estimated BMI. HEMATOLOGY Most recent to 1 oldest [Reference Range]: WBC [3.7-10.4 K/CMM] 6.1 K/CMM (12/11/15 8:03 AM) RBC [4.70-6.10 5.32 M/CMM M/CMM] (12/11/15 8:03 AM) Hgb [14.0-18.0 g/dL] 16.1 g/dL (12/11/15 8:03 AM) Hct [42.0-54.0 %] 48.4 % (12/11/15 8:03 AM) MCV [80.0-94.0 fL] 90.8 fL (12/11/15 8:03 AM) MCH [27.0-31.0 pg] 30.2 pg (12/11/15 8:03 AM) MCHC [32.0-36.0 33.2 g/dL g/dL] (12/11/15 8:03 AM) RDW [11.5-14.5 %] 13.3 % (12/11/15 8:03 AM) Platelet [133-450 186 K/CMM K/CMM] (12/11/15 8:03 AM) MPV [7.4-10.4 fL] 8.7 fL (12/11/15 8:03 AM) Segs [45.0-75.0 %] 53.9 % (12/11/15 8:03 AM) Lymphocytes 30.1 % [20.0-40.0 %] (12/11/15 8:03 AM) Monocytes [2.0-12.0 12.1 % %] *HI* (12/11/15 8:03 AM) Eosinophils [0.0-4.0 2.8 % %] (12/11/15 8:03 AM) Basophils [0.0-1.0 1.1 % %] *HI* (12/11/15 8:03 AM) Segs-Bands # 3.3 K/CMM [1.5-8.1 K/CMM] (12/11/15 8:03 AM) Lymphocytes # 1.8 K/CMM [1.0-5.5 K/CMM] (12/11/15 8:03 AM) Monocytes # [0.0-0.8 0.7 K/CMM K/CMM] (12/11/15 8:03 AM) Eosinophils # 0.2 K/CMM [0.0-0.5 K/CMM] (12/11/15 8:03 AM) Basophils # [0.0-0.2 0.1 K/CMM K/CMM] (12/11/15 8:03 AM) Immunizations No data available for this section Procedures No data available for this section Social History Social History Type Response Alcohol Never Smoking Status Never smoker; Type: Cigarettes; Exposure to Tobacco Smoke None; Cigarette Smoking Last 365 Days No; Reg Smoking Cessation Counseling No Assessment and Plan No data available for this section
--- OUTSIDE RECORDS SUMMARY | 2019-02-24 19:28 | XMS REPORT | Summary of Care ---
Author Author [facility] Address Unknown Phone Unavailable Encounter HQ Mark_olivia([facility]) [id number] Date(s): 04/30/16 - 05/29/16 [facility] Dis[facility] Disposition: Home or Self Care Attending [...]
--- OUTSIDE RECORDS SUMMARY | 2019-02-24 19:28 | XMS REPORT | Summary of Care ---
Author Author [facility] Organization [facility] Address Unknown Phone Unavailable Encounter HU Flores(VIC) [id number] Date(s): 03/25/16 - 03/27/16 [facility] [address] [place] [address]- Final: Other infective bursitis, right elbow Discharge Disposition: Home Attending Physician: Roland King Admitting Physician: Roland King Referring Physician: Roland King Vital Signs 1 2 3 Most recent to oldest [Reference Range]: 167.64 cm (03/13/16 1:11 PM) Height 99.1 DegF (03/27/16 7:32 AM) 99.6 DegF *HI* (03/27/16 3:36 AM) 100 DegF *HI* (03/26/16 11:30 PM) Temperature Oral [96.4-99.1 DegF] 152/76 mmHg *HI* (03/27/16 7:32 AM) 149/83 mmHg *HI* (03/27/16 3:36 AM) 115/61 mmHg (03/26/16 11:30 PM) Blood Pressure [90-140/60-90 mmHg] 16 BRMIN (03/27/16 7:32 AM) 16 BRMIN (03/27/16 3:36 AM) 16 BRMIN (03/26/16 11:30 PM) Respiratory Rate [14-20 BRMIN] 94 bpm (03/27/16 7:32 AM) 90 bpm (03/27/16 3:36 AM) 98 bpm (03/26/16 11:30 PM) Peripheral Pulse Rate [60-100 bpm] 118.182 kg (03/13/16 1:11 PM) Weight 42.05 m2 (03/13/16 1:11 PM) Body Mass Index Problem List Condition Effective Dates Status Health Status Informant Arthritis(Confirmed) Active 1 Hypertension(Confirm Active ed) 1left knee Allergies, Adverse Reactions, Alerts Substance Reaction Severity Status NKDA Active Medications acetaminophen (ANES) Route: IV, Drug form: INJ, ONCE, Stop date: 03/25/16 13:29:00 CDT Start Date: 03/25/16 Stop Date: 03/25/16 Status: Completed Al hydroxide/Mg hydroxide/simethicone 200 mg-200 mg-20 mg/5 mL oral suspension 30 mL, Route: PO, Drug Form: SUSP, Dosing Weight 118.182, kg, Q4H, PRN Indigesti on, Start date: 03/25/16 13:41:00 CDT, Duration: 30 day, Stop date: 04/24/16 13: 40:00 CDT Notes: (aluminum hydroxide-magnesium hyd-simethicone [phone]/5ml 30 ml ud S US) Start Date: 03/25/16 Stop Date: 03/27/16 Status: Discontinued Ambien 5 mg, 1 tab, Route: PO, Drug form: TAB, Bedtime, Start date: 03/25/16 21:00:00 C DT, Duration: 30 day, Stop date: 04/23/16 21:00:00 CDT Notes: (Same As: Ambien) Start Date: 03/25/16 Stop Date: 03/27/16 Status: Discontinued Ancef 2 gm, 100 mL, Route: IVPB, Drug form: INJ, ONCE, Dosing Weight 118.182, kg, Star t date: 03/25/16 9:12:00 CDT, Duration: 1 doses or times, Stop date: 03/25/16 9: 12:00 CDT Notes: Same as: Ancef Start Date: 03/25/16 Stop Date: 03/25/16 Status: Ordered Benicar 40 mg, 2 tab, Route: PO, Drug form: TAB, Daily, Start date: 03/27/16 13:00:00 CD T, Duration: 30 day, Stop date: 04/26/16 9:00:00 CDT Start Date: 03/27/16 Stop Date: 03/27/16 Status: Discontinued Benicar HCT 25 mg-40 mg oral tablet 1 tab, PO, Daily, # 30 tab, 0 Refill(s) Start Date: 03/13/16 Status: Ordered Benicar HCT 25 mg-40 mg oral tablet 1 tab, Route: PO, Drug Form: TAB, Dosing Weight 118.182, kg, Daily, NOW, Start d ate: 03/27/16 12:24:00 CDT, Duration: 30 day, Stop date: 04/26/16 9:00:00 CDT Start Date: 03/27/16 Stop Date: 03/27/16 Status: Deleted Bystolic 10 mg, 1 tab, Route: PO, Drug form: TAB, Daily, Dosing Weight 118.182, kg, Start date: 03/26/16 9:00:00 CDT, Duration: 30 day, Stop date: 04/24/16 9:00:00 CDT Notes: (same as: Bystolic) Start Date: 03/26/16 Stop Date: 03/27/16 Status: Discontinued Bystolic 10 mg oral tablet 10 mg=1 tab, PO, Daily, # 30 tab, 0 Refill(s) Start Date: 03/13/16 Status: Ordered ceFAZolin (ANES) Route: IV, Drug form: INJ, ONCE, Stop date: 03/25/16 13:19:00 CDT Start Date: 03/25/16 Stop Date: 03/25/16 Status: Completed ceFAZolin (SCIP) 1 gm, 100 mL, Route: IVPB, Drug form: INJ, Q6H, Dosing Weight 118.182, kg, Start date: 03/25/16 18:00:00 CDT, Duration: 3 doses or times, Stop date: 03/26/16 6: 00:00 CDT Start Date: 03/25/16 Stop Date: 03/26/16 Status: Completed diphenhydrAMINE 50 mg, 1 cap, Route: PO, Drug form: CAP, Q6H, Dosing Weight 118.182, kg, PRN Itc ileana, Start date: 03/25/16 13:41:00 CDT, Stop date: 04/24/16 13:40:00 CDT Notes: (Same as: Benadryl) Start Date: 03/25/16 Stop Date: 03/27/16 Status: Discontinued docusate 100 mg, 1 cap, Route: PO, Drug form: CAP, BID, Dosing Weight 118.182, kg, Start date: 03/25/16 17:00:00 CDT, Duration: 30 day, Stop date: 04/24/16 9:00:00 CDT Notes: (Same as: Colace) (Do Not Crush) Start Date: 03/25/16 Stop Date: 03/27/16 Status: Discontinued Dulcolax Laxative 5 mg, 1 tab, Route: PO, Drug form: ECTAB, Q6H, Dosing Weight 118.182, kg, PRN Co nstipation, Start date: 03/27/16 12:29:00 CDT, Duration: 30 day, Stop date: 04/05 12/18 12:28:00 CDT Notes: (Same As: Dulcolax, Correctol) (Do Not Crush) "Do Not Crush" Start Date: 03/27/16 Stop Date: 03/27/16 Status: Discontinued enoxaparin 40 mg, Route: SUB-Q, Drug form: INJ, [id number], Dosing Weight 118.182, kg, Consid er for obese patients, Start date: 03/26/16 1:43:00 CDT, Duration: 30 day, Stop date: 04/24/16 13:43:00 CDT Start Date: 03/26/16 Stop Date: 03/25/16 Status: Canceled enoxaparin 30 mg, 0.3 mL, Route: SUB-Q, Drug form: INJ, [id number], Dosing Weight 118.182, kg , Start date: 03/25/16 14:00:00 CDT, Duration: 30 day, Stop date: 04/24/16 6:00: 00 CDT Notes: (Same as: Lovenox) Start Date: 03/25/16 Stop Date: 03/27/16 Status: Discontinued ePHEDrine (ANES) Route: IV, Drug form: INJ, ONCE, Stop date: 03/25/16 13:24:00 CDT Start Date: 03/25/16 Stop Date: 03/25/16 Status: Completed hydrochlorothiazide 25 mg oral tablet 25 mg, 1 tab, Route: PO, Drug form: TAB, Daily, Start date: 03/27/16 13:00:00 CD T, Duration: 30 day, Stop date: 04/26/16 9:00:00 CDT Notes: (Same as: Hydrodiuril) With food. Start Date: 03/27/16 Stop Date: 03/27/16 Status: Discontinued hydromorphone 0.3 mg, 0.3 mL, Route: IVP, Drug form: INJ, Q4H, Dosing Weight 118.182, kg, PRN Pain Score 7-10, Start date: 03/25/16 13:41:00 CDT, Duration: 30 day, Stop date: 04/24/16 13:40:00 CDT Start Date: 03/25/16 Stop Date: 03/27/16 Status: Discontinued hydromorphone (ANES) Route: INTRATHECAL, Drug form: INJ, ONCE, Stop date: 03/25/16 13:39:00 CDT Start Date: 03/25/16 Stop Date: 03/25/16 Status: Completed hydromorphone (ANES) Route: IV, Drug form: INJ, ONCE, Stop date: 03/25/16 13:39:00 CDT Start Date: 03/25/16 Stop Date: 03/25/16 Status: Completed HYDROmorphone POT PRESS OPERATOR 0.5mg/ml 30ml INJ 15 mg 15 mg, 30 mL, Route: IV, Initial Loading Dose: 0 mg, POT PRESS OPERATOR Dose: 0.2 mg, POT PRESS OPERATOR Locko ut: 8 minutes, Continuous Basal Rate: 0 mg, 4 Hour Limit (In MG): 6, Drug Form: INJ, Continuous, Start date: 03/25/16 14:00:00 CDT, Duration: 30 day, Stop date: 04/24/16 1... Notes: (Same as: Dilaudid) conc=0.5 mg/mlHydromorphone POT PRESS OPERATOR Dose: ;Delay: ;Basal: Start Date: 03/25/16 Stop Date: 03/26/16 Status: Discontinued Keflex 500 mg oral capsule 500 mg=1 cap, PO, QID, X 10 day, # 40 cap, 0 Refill(s) Start Date: 03/25/16 Stop Date: 04/04/16 Status: Ordered Lactated Ringers 1,000 mL 1,000 mL, Rate: 75 ml/hr, Infuse over: 13.3 hr, Route: IV, Dosing Weight 118.182 kg, Total Volume: 1,000, Start date: 03/25/16 13:41:00 CDT, Duration: 30 day, S top date: 04/24/16 13:40:00 CDT Start Date: 03/25/16 Stop Date: 03/26/16 Status: Discontinued Lactated Ringers Injection IV 1000 mL 1,000 mL, Rate: 25 ml/hr, Infuse over: 40 hr, Route: IV, Dosing Weight 118.182 k g, Total Volume: 1,000, Start date: 03/25/16 9:10:00 CDT, Duration: 30 day, Stop date: 04/24/16 9:09:00 CDT Start Date: 03/25/16 Stop Date: 03/25/16 Status: Discontinued lidocaine (ANES) Route: IV, Drug form: INJ, ONCE, Stop date: 03/25/16 13:19:00 CDT Start Date: 03/25/16 Stop Date: 03/25/16 Status: Completed Lovenox 30 mg/0.3 mL subcutaneous solution 30 mg, SUB-Q, Q12H, X 14 day, # 28 inj, 0 Refill(s) Start Date: 03/25/16 Stop Date: 04/08/16 Status: Ordered LR 1000 mL INJ (ANES) Route: IV, Total Volume: 1,000, Start date: 03/25/16 12:18:00 CDT, Stop date: 13:18:00 CDT Start Date: 03/25/16 Stop Date: 03/25/16 Status: Completed Lunesta 3 mg, Route: PO, Bedtime, Dosing Weight 118.182, kg, Start date: 03/25/16 21:00: 00 CDT, Duration: 30 day, Stop date: 04/23/16 21:00:00 CDT Start Date: 03/25/16 Stop Date: 03/25/16 Status: Deleted Lunesta 3 mg oral tablet 3 mg=1 tab, PO, Bedtime, PRN for insomnia, # 30 tab, 0 Refill(s) Start Date: 03/25/16 Stop Date: 04/24/16 Status: Ordered naloxone 0.04 mg, 0.1 mL, Route: IVP, Drug form: INJ, Q2MIN, Dosing Weight 118.182, kg, P RN Narcotic Reversal, Start date: 03/25/16 13:41:00 CDT, Duration: 30 day, Stop date: 04/24/16 13:40:00 CDT Notes: Same as Narcan Start Date: 03/25/16 Stop Date: 03/27/16 Status: Discontinued Milford 7.5/325 oral tablet 1 tab, Route: PO, Drug Form: TAB, Dosing Weight 118.182, kg, Q4H, PRN Pain Score 4-6, Start date: 03/27/16 8:47:00 CDT, Duration: 30 day, Stop date: 04/26/16 8: 46:00 CDT Notes: Same as Milford 325-7.5mg Do not exceed 4gm/day of acetaminophen. Start Date: 03/27/16 Stop Date: 03/27/16 Status: Discontinued Milford 7.5/325 oral tablet 2 tab, Route: PO, Drug Form: TAB, Dosing Weight 118.182, kg, Q4H, PRN Pain Score 7-10, Start date: 03/26/16 7:54:00 CDT, Duration: 1 day, Stop date: 03/27/16 7: 53:00 CDT Notes: Same as Milford 325-7.5mg Do not exceed 4gm/day of acetaminophen. Start Date: 03/26/16 Stop Date: 03/27/16 Status: Completed Milford 7.5/325 oral tablet 1 tab, Route: PO, Drug Form: TAB, Dosing Weight 118.182, kg, Q4H, PRN Pain Score 4-6, Start date: 03/26/16 7:54:00 CDT, Duration: 1 day, Stop date: 03/27/16 7:5 3:00 CDT Notes: Same as Milford 325-7.5mg Do not exceed 4gm/day of acetaminophen. Start Date: 03/26/16 Stop Date: 03/27/16 Status: Completed Milford 7.5/325 oral tablet See Instructions, 1-2 tab PO Q4-6H as needed, # 60 tab, 0 Refill(s), given to dilshad olmedo Start Date: 03/27/16 Stop Date: 04/23/16 Status: Ordered Milford 7.5/325 oral tablet 2 tab, Route: PO, Drug Form: TAB, Dosing Weight 118.182, kg, Q4H, PRN Pain Score 7-10, Start date: 03/25/16 13:41:00 CDT, Duration: 30 day, Stop date: 04/24/16 13:40:00 CDT Notes: Same as Milford 325-7.5mg Do not exceed 4gm/day of acetaminophen. Start Date: 03/25/16 Stop Date: 03/26/16 Status: Discontinued Milford 7.5/325 oral tablet 1 tab, Route: PO, Drug Form: TAB, Dosing Weight 118.182, kg, Q4H, PRN Pain Score 4-6, Start date: 03/25/16 13:41:00 CDT, Duration: 30 day, Stop date: 04/24/16 1 3:40:00 CDT Notes: Same as Milford 325-7.5mg Do not exceed 4gm/day of acetaminophen. Start Date: 03/25/16 Stop Date: 03/26/16 Status: Discontinued Milford 7.5/325 oral tablet 2 tab, Route: PO, Drug Form: TAB, Dosing Weight 118.182, kg, Q4H, PRN Pain Score 7-10, Start date: 03/27/16 8:47:00 CDT, Duration: 30 day, Stop date: 04/26/16 8 :46:00 CDT Notes: Same as Milford 325-7.5mg Do not exceed 4gm/day of acetaminophen. Start Date: 03/27/16 Stop Date: 03/27/16 Status: Discontinued ondansetron 4 mg, 2 mL, Route: IVP, Drug form: INJ, Q8H, Dosing Weight 118.182, kg, PRN Naus ea & Vomiting, Start date: 03/25/16 13:41:00 CDT, Duration: 30 day, Stop date: 04/24/16 13:40:00 CDT Notes: (Same as: Kerline) MEDICATION WASTE Product Size: 4 mgProduct Was aman: ___ mg Start Date: 03/25/16 Stop Date: 03/27/16 Status: Discontinued ondansetron (ANES) Route: IV, Drug form: INJ, ONCE, Stop date: 03/25/16 14:00:00 CDT Start Date: 03/25/16 Stop Date: 03/25/16 Status: Completed Phenergan + sodium chloride 0.9% INJ 50 mL 25 mg, 1 mL, Route: IVPB, Q4H, Dosing Weight 118.182, kg, PRN Itching, Start sofya e: 03/26/16 12:37:00 CDT, Duration: 3 day, Stop date: 03/29/16 12:36:00 CDT Notes: Do not give IV push. (Same as: Phenergan) Start Date: 03/26/16 Stop Date: 03/27/16 Status: Discontinued propofol (ANES) Route: IV, Drug form: INJ, ONCE, Stop date: 03/25/16 13:19:00 CDT Start Date: 03/25/16 Stop Date: 03/25/16 Status: Completed tranexamic acid (ANES) Route: IV, Drug form: INJ, ONCE, Stop date: 03/25/16 13:55:00 CDT Start Date: 03/25/16 Stop Date: 03/25/16 Status: Completed Tylenol 650 mg, 2 tab, Route: PO, Drug form: TAB, Q6H, Dosing Weight 118.182, kg, PRN Fo r Temp > 100.4 F, Start date: 03/25/16 13:41:00 CDT, Duration: 30 day, Stop date: 04/24/16 13:40:00 CDT Notes: Do not exceed 4 gm/day. (Same as: Tylenol) Start Date: 03/25/16 Stop Date: 03/27/16 Status: Discontinued Valium 5 mg oral tablet 5 mg=1 tab, PO, QID, PRN Spasm, # 30 tab, 0 Refill(s) Start Date: 03/25/16 Stop Date: 04/24/16 Status: Ordered Results BLOOD BANK RESULTS 1 2 3 Most recent to oldest [Reference Range]: O POS *Unknown* (03/25/16 8:34 AM) O POS *Unknown* (03/13/16 1:46 PM) ABO/Rh Negative (03/25/16 8:34 AM) Negative (03/13/16 1:46 PM) Antibody Scrn Product available 1 (03/13/16 1:43 PM) RBC product 1Result Comment: 03/25/2016 09:50 [id number] Spoke with Blank ELECTROLYTES 1 2 3 Most recent to oldest [Reference Range]: 141 mEq/L (03/13/16 1:46 PM) Sodium Lvl [135-145 mEq/L] 3.6 mEq/L (03/13/16 1:46 PM) Potassium Lvl [3.5-5.1 mEq/L] 104 mEq/L (03/13/16 1:46 PM) Chloride Lvl [95-109 mEq/L] 27 mEq/L (03/13/16 1:46 PM) CO2 [24-32 mEq/L] 13.6 mEq/L (03/13/16 1:46 PM) AGAP [10.0-20.0 mEq/L] CHEM PANEL 1 2 3 Most recent to oldest [Reference Range]: 1.36 mg/dL (03/26/16 4:38 AM) 1.09 mg/dL (03/13/16 1:46 PM) Creatinine Lvl [0.50-1.40 mg/dL] 57 mL/min/1.73m2 1 *NA* (03/26/16 4:38 AM) 75 mL/min/1.73m2 2 *NA* (03/13/16 1:46 PM) eGFR 12 mg/dL (03/13/16 1:46 PM) BUN [7-22 mg/dL] 100 mg/dL *HI* (03/13/16 1:46 PM) Glucose Lvl [70-99 mg/dL] 8.8 mg/dL (03/13/16 1:46 PM) Calcium Lvl [8.5-10.5 mg/dL] 1Result Comment: The eGFR is calculated using [...] be mul tiplied by the estimated BMI. 2Result Comment: The eGFR is calculated using the [...] mul tiplied by the estimated BMI. HEMATOLOGY 1 2 3 Most recent to oldest [Reference Range]: 11.8 K/CMM *HI* (03/27/16 4:45 AM) 10.7 K/CMM *HI* (03/26/16 4:38 AM) 9.3 K/CMM (03/13/16 1:46 PM) WBC [3.7-10.4 K/CMM] 3.83 M/CMM *LOW* (03/27/16 4:45 AM) 3.98 M/CMM *LOW* (03/26/16 4:38 AM) 5.12 M/CMM (03/13/16 1:46 PM) RBC [4.70-6.10 M/CMM] 11.4 g/dL *LOW* (03/27/16 4:45 AM) 12.2 g/dL *LOW* (03/26/16 4:38 AM) 15.7 g/dL (03/13/16 1:46 PM) Hgb [14.0-18.0 g/dL] 34.8 % *LOW* (03/27/16 4:45 AM) 36.0 % *LOW* (03/26/16 4:38 AM) 46.2 % (03/13/16 1:46 PM) Hct [42.0-54.0 %] 90.8 fL (03/27/16 4:45 AM) 90.7 fL (03/26/16 4:38 AM) 90.2 fL (03/13/16 1:46 PM) MCV [80.0-94.0 fL] 29.7 pg (03/27/16 4:45 AM) 30.6 pg (03/26/16 4:38 AM) 30.6 pg (03/13/16 1:46 PM) MCH [27.0-31.0 pg] 32.7 g/dL (03/27/16 4:45 AM) 33.7 g/dL (03/26/16 4:38 AM) 33.9 g/dL (03/13/16 1:46 PM) MCHC [32.0-36.0 g/dL] 13.6 % (03/27/16 4:45 AM) 13.1 % (03/26/16 4:38 AM) 13.4 % (03/13/16 1:46 PM) RDW [11.5-14.5 %] 156 K/CMM (03/27/16 4:45 AM) 173 K/CMM (03/26/16 4:38 AM) 216 K/CMM (03/13/16 1:46 PM) Platelet [133-450 K/CMM] 8.6 fL (03/27/16 4:45 AM) 8.8 fL (03/26/16 4:38 AM) 9.1 fL (03/13/16 1:46 PM) MPV [7.4-10.4 fL] 71.6 % (03/27/16 4:45 AM) 85.5 % *HI* (03/26/16 4:38 AM) 64.0 % (03/13/16 1:46 PM) Segs [45.0-75.0 %] 15.4 % *LOW* (03/27/16 4:45 AM) 7.8 % *LOW* (03/26/16 4:38 AM) 23.2 % (03/13/16 1:46 PM) Lymphocytes [20.0-40.0 %] 11.5 % (03/27/16 4:45 AM) 6.6 % (03/26/16 4:38 AM) 10.2 % (03/13/16 1:46 PM) Monocytes [2.0-12.0 %] 0.9 % (03/27/16 4:45 AM) 1.8 % (03/13/16 1:46 PM) Eosinophils [0.0-4.0 %] 0.6 % (03/27/16 4:45 AM) 0.1 % (03/26/16 4:38 AM) 0.8 % (03/13/16 1:46 PM) Basophils [0.0-1.0 %] 8.5 K/CMM *HI* (03/27/16 4:45 AM) 9.2 K/CMM *HI* (03/26/16 4:38 AM) 5.9 K/CMM (03/13/16 1:46 PM) Segs-Bands # [1.5-8.1 K/CMM] 1.8 K/CMM (03/27/16 4:45 AM) 0.8 K/CMM *LOW* (03/26/16 4:38 AM) 2.2 K/CMM (03/13/16 1:46 PM) Lymphocytes # [1.0-5.5 K/CMM] 1.4 K/CMM *HI* (03/27/16 4:45 AM) 0.7 K/CMM (03/26/16 4:38 AM) 0.9 K/CMM *HI* (03/13/16 1:46 PM) Monocytes # [0.0-0.8 K/CMM] 0.1 K/CMM (03/27/16 4:45 AM) 0.2 K/CMM (03/13/16 1:46 PM) Eosinophils # [0.0-0.5 K/CMM] 0.1 K/CMM (03/27/16 4:45 AM) 0.1 K/CMM (03/13/16 1:46 PM) Basophils # [0.0-0.2 K/CMM] 14.8 seconds *HI* (03/13/16 1:46 PM) PT [12.0-14.7 seconds] 1.13 (03/13/16 1:46 PM) INR [0.85-1.17] 30.0 seconds (03/26/16 4:38 AM) 32.3 seconds (03/13/16 1:46 PM) PTT [22.9-35.8 seconds] Immunizations Given and Recorded Vaccine Date Status Refusal Reason pneumococcal 23-valent vaccine 03/27/16 Given Procedures Procedure Date Related Diagnosis Body Site Arthroscopy Colonoscopy Social History Social History Type Response Alcohol Never, Previous treatment: None. Smoking Status Never smoker; Type: Cigarettes; Exposure to Tobacco Smoke None; Cigarette Smoking Last 365 Days No; Reg Smoking Cessation Counseling No Assessment and Plan Extracted from: Title: Clinical Document Author: Raul Hdadad MD Date: 03/27/16 Internal Medicine Progress Note SUBJECTIVE: Patient is feeling ok except for post op pain and no bm since here OBJECTIVE: General: Not in acute distress HEENT: Sclera not icteric CV: RRR , no rub , no gallop , no murmur Lung: Clear to ascultation Abdomen: BS + , soft , not distended , not tender to palpation Ext: No edema Neuro: Awake and alert Skin: Not mottle Diagnostics reviewed with patient Vital Signs (last 24 hrs) Last Charted Temp Oral99.1 DegF (MAR 27 07:32) Heart Rate [id number] bpm (MAR 27 07:32) Resp Rate 16 BRMIN (MAR 27:32) SBPH 152mmHg (MAR 27:) DBP76 mmHg (MAR 27:32) SpO2L 90% (MAR 27:32) Input/Output RecordInOutBal /4hr Tot 0 0 0 /2224hr Tot 2100 900 1200 Labs (Last four charted values) WBC H 11.8(MAR 27)H 10.7(MAR 26)9.3(MAR 13) Hgb L 11.4(MAR 27)L 12.2(MAR 26)15.7(MAR 13) Hct L 34.8(MAR 27)L 36.0(MAR 26)46.2(MAR 13) Plt 156(MAR 27)173(MAR 26)216(MAR 13) Na 141(MAR 13) K 3.6(MAR 13) CO2 27(MAR 13) Cl 104(MAR 13) Cr 1.36(MAR 26)1.09(MAR 13) BUN 12(MAR 13) Glucose Random H 100(MAR 13) Ca 8.8(MAR 13) PT H 14.8(MAR 13) INR 1.13(MAR 13) PTT 30.0(MAR 26)32.3(MAR 13)Allergies (1) ActiveReaction NKDANone Documented ASSESSMENT AND PLAN See E order HTN. . Resume home medications. constipation . PRN dulc Medications (18) Active Scheduled: (8) ceFAZolin 2gm / NS 100ml (Premixed) 2 gm 100 mL, IVPB, ONCE docusate sodium 100 mg CAP 100 mg 1 cap, PO, BID enoxaparin 30 mg/0.3 ml INJ 30 mg 0.3 mL, SUB-Q, [id number] hydrochlorothiazide 25 mg TAB 25 mg 1 tab, PO, Daily nebivolol 10mg tablet 10 mg 1 tab, PO, Daily olmesartan 20 mg tab 40 mg 2 tab, PO, Daily pneumococcal vaccine 0.5ml VL (polyvalent) 0.5 mL, IM, Daily zolpidem 5 mg TAB 5 mg 1 tab, PO, Bedtime Continuous: (0) PRN: (10) acetaminophen 325 mg TABLET 650 mg 2 tab, PO, Q6H acetaminophen-hydrocodone 325-7.5 tab 1 tab, PO, Q4H acetaminophen-hydrocodone 325-7.5 tab 2 tab, PO, Q4H bisacodyl 5 mg, PO, Q6H diphenhydrAMINE 50 mg CAP 50 mg 1 cap, PO, Q6H HYDROmorphone 1mg/1ml inj amp 0.3 mg 0.3 mL, IVP, Q4H Maalox Advanced Regular 30ml SUSP 30 mL, PO, Q4H naloxone 0.4 mg/ml 1ml INJ vial 0.04 mg 0.1 mL, IVP, Q2MIN ondansetron 4mg/2mL INJ SYRINGE 4 mg 2 mL, IVP, Q8H promethazine 25 mg/1 ml INJ + sodium chloride 0.9% INJ 50 mL 25 mg 1 mL, IVPB, Q4H Addendum Has Morbid obesity as BMI 42. by Raul Haddad MD on 03/27/2016 12:31 Extracted from: Title: Clinical Document Author: Raul Haddad MD Date: 03/25/16 Medicine Consult HPI: Patient is s/p LTA. He is doing well with no cp/sob/palpiation Past Medical History: Arthritis Hypertension Had JOE but is not on cpap Medication: See list/MAR Allergies (1) ActiveReaction NKDANone Documented Social History: Does not smoke , Drink socially , Denies illicit drug usage Family History: Noncontributory ROS: 14 points ROS negative except as noted in the HPI Physical Examination: Vital Signs (last 24 hrs) Last Charted Heart Rate PeripheralL 58bpm (MAR 25 16:) Resp Rate 16 BRMIN (MAR 25 16:) [id number] mmHg (MAR 25 16:) DBP60 mmHg (MAR 25 16:) UvV838 % (MAR 25:) Labs (Last four charted values) WBC 9.3(MAR 13) Hgb 15.7(MAR 13) Hct 46.2(MAR 13) Plt 216(MAR 13) Na 141(MAR 13) K 3.6(MAR 13) CO2 27(MAR 13) Cl 104(MAR 13) Cr 1.09(MAR 13) BUN 12(MAR 13) Glucose Random H 100(MAR 13) Ca 8.8(MAR 13) PT H 14.8(MAR 13) INR 1.13(MAR 13) PTT 32.3(MAR 13) General: Not in acute distress HEENT: Sclera not icteric CV: RRR , no rub , no gallop , no murmur Lung: CTA Abdomen: BS + , soft , not distended , not tender to palpation Ext: No edema Skin: Not mottle Neuro: Awake, move all ext. EKG: noted, NSR Assessment and Plan: HTN. Did not take med today but bp is good. Will restart bystolic for now and if bp increases , will restart benicar/hctz Hx JOE. Monitor See E order Further recommendations pending evaluations Discussed condition and plan of treatment with patient Thank you for allowing me to participate in this patient care. I will follow the patient during this hospitalization.
--- OUTSIDE RECORDS SUMMARY | 2019-02-24 19:28 | XMS REPORT | Summary of Care ---
Author Author [facility] Address Unknown Phone Unavailable Encounter HQ Mark_olivia([facility]) [id number] Date(s): 06/03/16 - 07/02/16 [facility] Discharge Disposition: Home or Self Care [...]
[2019-02-24] MEDS ORDERED: ASPIRIN 81 MG CHEW TAB PO ONE (19:30)
[2019-02-24] MEDS ORDERED: SODIUM CHLORIDE 0.9% 1000ML 1,000 ML IV STA (19:56)
[2019-02-24] MEDS ORDERED: ONDANSETRON HCL INJ 2MG/ML 2ML 2 MG/ML VIAL IV ONE (19:56)
[2019-02-24] MEDS ORDERED: MORPHINE SULFATE INJ 4 MG/ML INJ 1ML IV ONE (20:00)
[2019-02-24] MEDS ORDERED: IBUPROFEN 600 MG TAB ONE (20:05)
[2019-02-24] MEDS ORDERED: IBUPROFEN 200 MG TAB ONE (20:06)
[2019-02-24] MEDS ORDERED: KETOROLAC TROMETHAMINE 30 MG/ML VIAL IV ONE (20:15)
[2019-02-24] MEDS ORDERED: IBUPROFEN 200 MG TAB PO STA (20:16)
[2019-02-24] MEDS ORDERED: IBUPROFEN 600 MG TAB PO STA (20:16)
[2019-02-24] MEDS ORDERED: IBUPROFEN 200 MG TAB PO ONE (20:30)
[2019-02-24] MEDS ORDERED: IBUPROFEN 600 MG TAB PO ONE (20:30)
[2019-02-24 20:46] LABS: BASOPHILS # (AUTO) 0.1 (0.0-0.1); BASOPHILS % 0.4 % (0.0-1.0); EOSINOPHILS % 0.3 % (0.0-6.0); HEMATOCRIT 49.2 % (38.2-49.6); HEMOGLOBIN 17.4 g/dL (14.0-18.0); LYMPHOCYTES # (AUTO) 1.4 (1.0-3.2); LYMPHOCYTES % 12.2 % (18.0-39.1); MEAN CORPUSCULAR HEMOGLOBIN 30.7 pg (28-32); MEAN CORPUSCULAR HGB CONC 35.4 g/dL (31-35); MEAN CORPUSCULAR VOLUME 86.8 fL (81-99); MONOCYTES # (AUTO) 1.3 (0.2-0.8); MONOCYTES % 11.4 % (4.4-11.3); NEUTROPHILS # (AUTO) 8.8 (2.1-6.9); NEUTROPHILS % 75.4 % (38.7-80.0); PLATELET COUNT 227 x10e3/uL (140-360); RED BLOOD COUNT 5.67 x10e6/uL (4.3-5.7); RED CELL DISTRIBUTION WIDTH 12.6 % (11.7-14.4)
[2019-02-24 21:07] LABS: ALBUMIN 3.4 g/dL (3.5-5.0); ALBUMIN/GLOBULIN RATIO 0.7 (0.8-2.0); ANION GAP 15.3 mmol/L (8-16); CREATININE, SERUM 1.57 mg/dL (0.72-1.25); POTASSIUM 3.3 mmol/L (3.5-5.1)
[2019-02-24 21:21] LABS: BILIRUBIN,URINE SMALL (NEGATIVE); CLARITY,URINE SL CLOUDY (CLEAR); KETONES,URINE NEGATIVE (NEGATIVE); LEUKOCYTE ESTERASE ,URINE TRACE (NEGATIVE); NITRITE,URINE NEGATIVE (NEGATIVE); PROTEIN,URINE DIPSTICK 2+ (NEGATIVE); URINE UROBILINOGEN 0.2 mg/dL (0.2 - 1)
[2019-02-24 21:22] LABS: COLOR,URINE STRAW (YELLOW)
--- NOTE | 2019-02-24 21:38 | Diagnostic Imaging Report ---
EXAMINATION: PA and lateral views of the chest. COMPARISON: June 24, 2016 CLINICAL HISTORY: Fever and edema DISCUSSION: Lines/tubes: None. Lungs: Otherwise the lungs are clear. Pleura: There is no pleural effusion or pneumothorax. Heart and mediastinum: Right perihilar mass/consolidation. Bones and soft tissues: No acute bony abnormalities. IMPRESSION: Right perihilar mass/consolidation. (Additionally could reflect prominent hilar vessels) Consider CT with contrast. Signed by: Dr. Lee Vasques M.D. on 02/24/2019 9:35 PM
[2019-02-24 21:59] LABS: WBC,URINE (MAN) 21-50 /HPF (0-5)
[2019-02-24 22:00] LABS: BACTERIA,URINE FEW /HPF; EPITHELIAL CELLS,URINE MANY /LPF; RBC,URINE 0-5 /HPF (0-5); TRANSITIONAL EPI CELLS,URINE FEW
--- NOTE | 2019-02-24 22:04 | Diagnostic Imaging Report ---
EXAMINATION: Scrotal ultrasound CLINICAL INDICATION: Testicular pain. COMPARISON: None. TECHNIQUE: Grayscale and color Doppler evaluation of the scrotum was performed in transverse and longitudinal planes. FINDINGS: The right testicle measures 4.6 x 2.6 x 2.8 cm. No masses or calcifications.. The right epididymis measures 1.2 cm. No nodules or masses.. No right hydrocele or varicocele. Normal flow to the right testicle, without torsion. The left testicle measures 4.3 x 2.3 x 2.8 cm. No masses or calcifications.. The right epididymis measures 1.1 cm. No nodules or masses.. No right hydrocele or varicocele. Normal flow to the left testicle, without torsion. The scrotum has a normal appearance, without focal lesions. Impression: Normal scrotal ultrasound. Signed by: Dr. Lee Vasques M.D. on 02/24/2019 10:01 PM
--- NOTE | 2019-02-24 23:22 | Diagnostic Imaging Report ---
EXAMINATION: CT of the abdomen and pelvis without contrast. TECHNIQUE: Helical CT images of the abdomen and pelvis were performed from the lung bases to the lesser trochanters. No intravenous contrast was given per renal stone protocol. Coronal and sagittal reformatted images were obtained.Dose modulation, iterative reconstruction, and/or weight based adjustment of the mA/kV was utilized to reduce the radiation dose to as low as reasonably achievable. COMPARISON: None. CLINICAL HISTORY:Abdominal pain DISCUSSION: ABSENCE OF INTRAVENOUS CONTRAST DECREASES SENSITIVITY FOR DETECTION OF FOCAL LESIONS AND VASCULAR PATHOLOGY. ABDOMEN/PELVIS: LOWER THORAX: Consolidation within the medial aspect of the middle lobe. HEPATOBILIARY:No focal hepatic lesions. No biliary ductal dilation. The gallbladder is normal. SPLEEN: No splenomegaly. PANCREAS: No focal masses or ductal dilatation. ADRENALS: No adrenal nodules. KIDNEYS/URETERS: No hydronephrosis, stones, or solid mass lesions. Simple left renal cysts, largest 4.5 cm. PELVIC ORGANS/BLADDER: The bladder is normal. PERITONEUM/RETROPERITONEUM: No free air or fluid. LYMPH NODES: No intra-abdominal,retroperitoneal, pelvic or inguinal lymphadenopathy. VESSELS: The celiac trunk,superior and inferior mesenteric and bilateral renal arteries are patent The portal, superior mesenteric and splenic veins are patent. GI TRACT: Colonic diverticulosis. No inflammatory change. The appendix is normal. BONES AND SOFT TISSUES: No abnormal bony lesion. Fat-containing hernia. IMPRESSION: Right middle lobe pneumonia Signed by: Dr. Lee Vasques M.D. on 02/24/2019 11:18 PM
[2019-02-24] MEDS ORDERED: LEVAQUIN500 MG PO (23:38)
[2019-02-24] MEDS ORDERED: TYLENOL WITH C1 EACH PO (23:41)
[2019-02-24] MEDS ORDERED: AZITHROMYCIN 250 MG TAB PO ONE (23:45)
[2019-02-24 23:53] VITALS: BP 109/57
== END 2019-02-25 00:06 | disposition home or self-care (01) ==
LOC: ER 19:24
DX: R50.9 Fever, unspecified (principal); R30.0 Dysuria; N50.812 Left testicular pain; I10 Essential (primary) hypertension
CPT/HCPCS: 36415; 71046; 74176; 76870; 80053; 81001; 83605; 85025; 87040; 87086; 93976; 96374; 99284; J0696; J1885; J2270; J2405; J7030

== ENCOUNTER → 2020-12-18 | Day surgery (SDC) | payer BC ==
[2020-12-14 08:29] LABS: BASOPHILS # (AUTO) 0.1 (0.0-0.1); BASOPHILS % 1.1 % (0.0-1.0); EOSINOPHILS # (AUTO) 0.2 (0.0-0.4); EOSINOPHILS % 3.7 % (0.0-6.0); HEMATOCRIT 45.3 % (38.2-49.6); HEMOGLOBIN 15.4 g/dL (14.0-18.0); LYMPHOCYTES # (AUTO) 2.1 (1.0-3.2); LYMPHOCYTES % 32.5 % (18.0-39.1); MEAN CORPUSCULAR HEMOGLOBIN 30.5 pg (28-32); MEAN CORPUSCULAR VOLUME 89.7 fL (81-99); MONOCYTES # (AUTO) 0.6 (0.2-0.8); NEUTROPHILS # (AUTO) 3.3 (2.1-6.9); NEUTROPHILS % 52.2 % (38.7-80.0); PLATELET COUNT 201 x10e3/uL (140-360); RED BLOOD COUNT 5.05 x10e6/uL (4.3-5.7); RED CELL DISTRIBUTION WIDTH 12.4 % (11.7-14.4)
[~2020-12-18] MED LIST changes: +ATENOLOL50 MG PO; +CLOPIDOGREL75 MG PO; +FENTANYL CITRATE/PF 100MCG/2 ML INJ ONE; +HYDROCHLOROTHIA25 MG PO; +LEVAQUIN500 MG PO; +LIDOCAINE HCL 2% LOCAL INJ 5 ML SDV VIAL INJ ONE; +MIDAZOLAM HCL 2 MG/2 ML VIAL ONE; +PROPOFOL IV EMULSION 10 MG/ML 20 ML VIAL ONE; +TYLENOL WITH C1 EACH PO; +VOLTAREN-XR100 MG PO
[2020-12-18 16:10] VITALS: BP 144/70
== END | disposition home or self-care (01) ==
LOC: OR 11:54
PROVIDERS: ATTEND Internal Medicine Gastroenterology
DX: K29.50 Unspecified chronic gastritis without bleeding (principal); Z86.010 Personal history of colon polyps; K20.90 Esophagitis, unspecified without bleeding; K57.30 Diverticulosis of large intestine without perforation or abscess without bleeding; K59.09 Other constipation; K64.8 Other hemorrhoids; I10 Essential (primary) hypertension; I25.10 Atherosclerotic heart disease of native coronary artery without angina pectoris; R39.11 Hesitancy of micturition; N50.89 Other specified disorders of the male genital organs; Z01.810 Encounter for preprocedural cardiovascular examination; Z01.812 Encounter for preprocedural laboratory examination; Z20.822 Contact with and (suspected) exposure to COVID-19; Z79.01 Long term (current) use of anticoagulants; Z68.41 Body mass index [BMI] 40.0-44.9, adult
CPT/HCPCS: 36415; 43239; 45378; 85025; 93005; J2001; J2250; J2704; J3010; U0002

== ENCOUNTER → 2021-02-22 | Outpatient (CLI) | payer BC ==
[~2021-02-22] MED LIST changes: -FENTANYL CITRATE/PF 100MCG/2 ML INJ ONE; -LIDOCAINE HCL 2% LOCAL INJ 5 ML SDV VIAL INJ ONE; -MIDAZOLAM HCL 2 MG/2 ML VIAL ONE; -PROPOFOL IV EMULSION 10 MG/ML 20 ML VIAL ONE
== END ==
LOC: US 10:22
PROVIDERS: ATTEND Urology
DX: N28.1 Cyst of kidney, acquired (principal); N45.3 Epididymo-orchitis
CPT/HCPCS: 74018; 76770; 76857; 76870; 93976

== ENCOUNTER 2025-02-24 12:21 | Inpatient (IN) | payer BC, MEDICARE ==
[2025-02-22 09:01] LABS: BASOPHILS # (AUTO) 0.2 (0.0-0.1); BASOPHILS % 1.5 % (0.0-1.0); EOSINOPHILS # (AUTO) 1.3 (0.0-0.4); EOSINOPHILS % 13.4 % (0.0-6.0); HEMATOCRIT 41.8 % (38.2-49.6); LYMPHOCYTES # (AUTO) 2.8 (1.0-3.2); MEAN CORPUSCULAR HEMOGLOBIN 30.9 pg (28-32); MEAN CORPUSCULAR HGB CONC 33.5 g/dL (31-35); MEAN CORPUSCULAR VOLUME 92.3 fL (81-99); MONOCYTES # (AUTO) 0.8 (0.2-0.8); MONOCYTES % 7.9 % (4.4-11.3); NEUTROPHILS # (AUTO) 4.8 (2.1-6.9); NEUTROPHILS % 48.7 % (38.7-80.0); PLATELET COUNT 267 x10e3/uL (140-360); RED BLOOD COUNT 4.53 x10e6/uL (4.3-5.7); RED CELL DISTRIBUTION WIDTH 13.3 % (11.7-14.4); WHITE BLOOD COUNT 9.85 x10e3/uL (4.8-10.8)
[2025-02-22 09:30] LABS: ANION GAP 14.9 mmol/L (8-16); CALCIUM 8.7 mg/dL (8.4-10.2); CREATININE, SERUM 1.22 mg/dL (0.72-1.25); POTASSIUM 3.9 mmol/L (3.5-5.1)
[~2025-02-24] VITALS: Ht 167.6 cm; Wt 116.6 kg
[~2025-02-24 12:21] MED LIST changes: +ALLOPURINOL100 MG PO; +AMLODIPINE BESY10 MG PO; +ASPIRIN81 MG PO; +ATORVASTATIN CA20 MG PO; +BENICAR HCT 401 EACH
[2025-02-24] MEDS: SODIUM CHLORIDE 0.9% 1000ML 1,000 ML ONE (13:00)
[2025-02-24] MEDS: GENTAMICIN 80MG/NS 100 ML 200 ML IV ONE (13:01)
[2025-02-24] MEDS: PIPERACILLIN/TAZOBACTAM 3.375 GM VIAL ONE (13:01)
[2025-02-24] MEDS ORDERED: PROPOFOL IV EMULSION 10 MG/ML 20 ML VIAL ONE (13:22)
[2025-02-24] MEDS ORDERED: LIDOCAINE HCL 2% LOCAL INJ 5 ML SDV VIAL INJ ONE (13:22)
[2025-02-24] MEDS ORDERED: FENTANYL CITRATE/PF 100MCG/2 ML INJ ONE ×2 (13:22→14:13)
[2025-02-24] MEDS ORDERED: ROCURONIUM BROMIDE 0 ML IV ONE (13:22)
[2025-02-24] MEDS ORDERED: MIDAZOLAM HCL 2 MG/2 ML VIAL ONE (13:22)
[2025-02-24] MEDS ORDERED: PHENYLEPHRINE HCL 1% 10 MG/ML VIAL ONE (13:42)
[2025-02-24] MEDS ORDERED: ONDANSETRON HCL INJ 2MG/ML 2ML 2 MG/ML VIAL ONE (14:00)
[2025-02-24] MEDS ORDERED: DEXAMETHASONE SOD PHOS INJ 4 MG/ML SDV ONE (14:00)
[2025-02-24] MEDS ORDERED: FAMOTIDINE 20 MG/2 ML VIAL IV ONE (14:00)
[2025-02-24] MEDS ORDERED: EPHEDRINE SULFATE INJ 50 MG/ML VIAL ONE (14:02)
[2025-02-24] MEDS ORDERED: GLYCOPYRROLATE INJ 0.2 MG/ML VIAL ONE (14:13)
[2025-02-24] MEDS ORDERED: KETAMINE HCL INJ 50 MG/ML 10 ML VIAL ONE (14:14)
[2025-02-24] MEDS ORDERED: ESMOLOL HCL 100MG/10ML 10 MG/ML VIAL ONE (14:27)
[2025-02-24] MEDS ORDERED: ONDANSETRON HCL INJ 2MG/ML 2ML 2 MG/ML VIAL IV PRN (15:45)
[2025-02-24] MEDS ORDERED: DIPHENHYDRAMINE HCL INJ 50 MG/ML VIAL IM PRN (15:45)
[2025-02-24] MEDS ORDERED: ACETAMINOPHEN 1000 MG/100 ML IV PRN (15:45)
[2025-02-24 15:56] LABS: BASOPHILS # (AUTO) 0.1 (0.0-0.1); BASOPHILS % 0.8 % (0.0-1.0); EOSINOPHILS # (AUTO) 0.8 (0.0-0.4); HEMATOCRIT 38.1 % (38.2-49.6); HEMOGLOBIN 13.1 g/dL (14.0-18.0); LYMPHOCYTES # (AUTO) 2.1 (1.0-3.2); LYMPHOCYTES % 21.6 % (18.0-39.1); MEAN CORPUSCULAR HEMOGLOBIN 31.3 pg (28-32); MEAN CORPUSCULAR HGB CONC 34.4 g/dL (31-35); MEAN CORPUSCULAR VOLUME 90.9 fL (81-99); MONOCYTES # (AUTO) 0.3 (0.2-0.8); MONOCYTES % 3.1 % (4.4-11.3); NEUTROPHILS # (AUTO) 6.3 (2.1-6.9); NEUTROPHILS % 66.2 % (38.7-80.0); PLATELET COUNT 205 x10e3/uL (140-360); RED BLOOD COUNT 4.19 x10e6/uL (4.3-5.7); RED CELL DISTRIBUTION WIDTH 13.2 % (11.7-14.4); WHITE BLOOD COUNT 9.53 x10e3/uL (4.8-10.8)
[2025-02-24 16:21] LABS: ANION GAP 14.2 mmol/L (8-16); CALCIUM 7.9 mg/dL (8.4-10.2); CREATININE, SERUM 0.99 mg/dL (0.72-1.25); POTASSIUM 4.2 mmol/L (3.5-5.1)
[2025-02-24] MEDS: SODIUM CHLORIDE 0.9% 1000ML 1,000 ML IV SCH (17:54)
[2025-02-24] MEDS: PHENAZOPYRIDINE HCL 100 MG TAB PO PRN (17:55)
[2025-02-24] MEDS: SENNA-S TABLET PO SCH (17:55)
[2025-02-24 20:00] VITALS: BP 137/64; PULSE 78; RESP 18; TEMP 98; O2SAT 97
[2025-02-25] VITALS (10 sets, daily range): BP systolic 141–158; BP diastolic 63–83; PULSE 71–77; RESP 18–20; TEMP 97.5–98; O2SAT 95–98
[2025-02-25 07:21] LABS: BASOPHILS % 0.2 % (0.0-1.0); HEMATOCRIT 41.5 % (38.2-49.6); HEMOGLOBIN 13.9 g/dL (14.0-18.0); LYMPHOCYTES # (AUTO) 1.3 (1.0-3.2); LYMPHOCYTES % 9.6 % (18.0-39.1); MEAN CORPUSCULAR HEMOGLOBIN 30.7 pg (28-32); MEAN CORPUSCULAR HGB CONC 33.5 g/dL (31-35); MEAN CORPUSCULAR VOLUME 91.6 fL (81-99); MONOCYTES # (AUTO) 0.3 (0.2-0.8); MONOCYTES % 2.3 % (4.4-11.3); NEUTROPHILS # (AUTO) 11.5 (2.1-6.9); NEUTROPHILS % 87.2 % (38.7-80.0); PLATELET COUNT 250 x10e3/uL (140-360); RED BLOOD COUNT 4.53 x10e6/uL (4.3-5.7); WHITE BLOOD COUNT 13.17 x10e3/uL (4.8-10.8)
[2025-02-25 07:33] LABS: ANION GAP 14.3 mmol/L (8-16); CALCIUM 8.2 mg/dL (8.4-10.2); POTASSIUM 4.3 mmol/L (3.5-5.1)
[2025-02-25 07:50] LABS: CREATININE, SERUM 0.93 mg/dL (0.72-1.25)
[2025-02-25] MEDS: ACETAMINOPHEN/CODEINE 300MG - 30MG TAB PO PRN (13:00)
[2025-02-25] MEDS ORDERED: DEXTROSE 50% SYRINGE 50 ML IV PRN (13:30)
[2025-02-25] MEDS ORDERED: DOCUSATE SODIUM 100 MG CAP PO PRN (13:30)
[2025-02-25] MEDS ORDERED: BENZONATATE 100 MG CAP PO PRN (13:30)
[2025-02-25] MEDS ORDERED: LIDOCAINE 4% PATCH TP PRN (13:30)
[2025-02-25] MEDS ORDERED: ALBUTEROL/IPRATROPIUM 3 ML NEB NEB PRN (13:30)
[2025-02-25] MEDS ORDERED: ACETAMINOPHEN 325 MG TAB PO PRN (13:30)
[2025-02-25] MEDS ORDERED: HYDRALAZINE HCL 20 MG/ML VIAL IV PRN (13:30)
[2025-02-25] MEDS ORDERED: SIMETHICONE 80 MG CHEW PO PRN (13:30)
[2025-02-25] MEDS ORDERED: DIPHENHYDRAMINE HCL 25 MG CAP PO PRN (13:30)
[2025-02-25] MEDS ORDERED: POTASSIUM CHLORIDE 20 MEQ TAB CR PO PRN (13:30)
[2025-02-25] MEDS ORDERED: MELATONIN 5 MG TABLET PO PRN (21:00)
[2025-02-25] MEDS: ATORVASTATIN 20 MG TAB PO SCH (21:31)
[2025-02-26] VITALS (14 sets, daily range): BP systolic 136–166; BP diastolic 66–81; PULSE 59–79; RESP 18–19; TEMP 97.3–98; O2SAT 93–99
[2025-02-26 05:59] LABS: BASOPHILS % 0.3 % (0.0-1.0); EOSINOPHILS % 0.1 % (0.0-6.0); HEMATOCRIT 38.2 % (38.2-49.6); HEMOGLOBIN 13.1 g/dL (14.0-18.0); LYMPHOCYTES # (AUTO) 1.9 (1.0-3.2); LYMPHOCYTES % 12.9 % (18.0-39.1); MEAN CORPUSCULAR HEMOGLOBIN 31.3 pg (28-32); MEAN CORPUSCULAR HGB CONC 34.3 g/dL (31-35); MEAN CORPUSCULAR VOLUME 91.4 fL (81-99); MONOCYTES # (AUTO) 0.9 (0.2-0.8); MONOCYTES % 6.4 % (4.4-11.3); NEUTROPHILS # (AUTO) 11.4 (2.1-6.9); PLATELET COUNT 251 x10e3/uL (140-360); RED BLOOD COUNT 4.18 x10e6/uL (4.3-5.7); RED CELL DISTRIBUTION WIDTH 13.4 % (11.7-14.4); WHITE BLOOD COUNT 14.29 x10e3/uL (4.8-10.8)
[2025-02-26 06:15] LABS: ANION GAP 12.1 mmol/L (8-16); CALCIUM 7.9 mg/dL (8.4-10.2); CREATININE, SERUM 1.13 mg/dL (0.72-1.25); POTASSIUM 4.1 mmol/L (3.5-5.1)
[2025-02-26] MEDS: PANTOPRAZOLE SOD 40 MG TABEC PO SCH (08:27)
[2025-02-26] MEDS: AMLODIPINE BESYLATE 10 MG TAB PO SCH (08:27)
[2025-02-27] VITALS (10 sets, daily range): BP systolic 126–177; BP diastolic 63–92; PULSE 63–80; RESP 18–20; TEMP 97.5–98.5; O2SAT 95–100
[2025-02-27 04:51] LABS: BASOPHILS # (AUTO) 0.1 (0.0-0.1); BASOPHILS % 1.1 % (0.0-1.0); EOSINOPHILS # (AUTO) 0.6 (0.0-0.4); EOSINOPHILS % 5.7 % (0.0-6.0); HEMATOCRIT 38.5 % (38.2-49.6); HEMOGLOBIN 12.9 g/dL (14.0-18.0); LYMPHOCYTES # (AUTO) 2.7 (1.0-3.2); LYMPHOCYTES % 24.3 % (18.0-39.1); MEAN CORPUSCULAR HGB CONC 33.5 g/dL (31-35); MEAN CORPUSCULAR VOLUME 92.5 fL (81-99); MONOCYTES % 9.5 % (4.4-11.3); NEUTROPHILS # (AUTO) 6.4 (2.1-6.9); NEUTROPHILS % 58.6 % (38.7-80.0); PLATELET COUNT 219 x10e3/uL (140-360); RED BLOOD COUNT 4.16 x10e6/uL (4.3-5.7); RED CELL DISTRIBUTION WIDTH 13.6 % (11.7-14.4); WHITE BLOOD COUNT 10.92 x10e3/uL (4.8-10.8)
[2025-02-27 05:22] LABS: ANION GAP 10.6 mmol/L (8-16); CALCIUM 7.7 mg/dL (8.4-10.2); CREATININE, SERUM 1.12 mg/dL (0.72-1.25); POTASSIUM 3.6 mmol/L (3.5-5.1)
[2025-02-28] VITALS (7 sets, daily range): BP systolic 137–156; BP diastolic 64–87; PULSE 68–79; RESP 17–20; TEMP 97.8–98.7; O2SAT 92–99
[2025-02-28 05:08] LABS: BASOPHILS # (AUTO) 0.1 (0.0-0.1); BASOPHILS % 1.2 % (0.0-1.0); EOSINOPHILS % 9.4 % (0.0-6.0); HEMATOCRIT 38.7 % (38.2-49.6); HEMOGLOBIN 12.8 g/dL (14.0-18.0); LYMPHOCYTES # (AUTO) 2.3 (1.0-3.2); LYMPHOCYTES % 21.9 % (18.0-39.1); MEAN CORPUSCULAR HEMOGLOBIN 30.5 pg (28-32); MEAN CORPUSCULAR HGB CONC 33.1 g/dL (31-35); MEAN CORPUSCULAR VOLUME 92.4 fL (81-99); MONOCYTES # (AUTO) 0.9 (0.2-0.8); MONOCYTES % 8.5 % (4.4-11.3); NEUTROPHILS # (AUTO) 6.1 (2.1-6.9); NEUTROPHILS % 58.4 % (38.7-80.0); PLATELET COUNT 205 x10e3/uL (140-360); RED BLOOD COUNT 4.19 x10e6/uL (4.3-5.7); RED CELL DISTRIBUTION WIDTH 13.4 % (11.7-14.4); WHITE BLOOD COUNT 10.48 x10e3/uL (4.8-10.8)
[2025-02-28 05:39] LABS: ANION GAP 11.5 mmol/L (8-16); CREATININE, SERUM 0.94 mg/dL (0.72-1.25); POTASSIUM 3.5 mmol/L (3.5-5.1)
== END 2025-02-28 18:00 | disposition home or self-care (01) | DRG 713 ==
LOC: OR 12:21 → PACU V 14:33 → MED/SURG 16:12
PROVIDERS: ADMIT Internal Medicine; ATTEND Internal Medicine
PROC: 0T7D8ZZ Dilation of Urethra, Via Natural or Artificial Opening Endoscopic (ICD-10-PCS; 2025-02-24)
PROC: BT140ZZ Fluoroscopy of Kidneys, Ureters and Bladder using High Osmolar Contrast (ICD-10-PCS; 2025-02-24)
PROC: 0VT08ZZ Resection of Prostate, Via Natural or Artificial Opening Endoscopic (ICD-10-PCS; principal; 2025-02-24 13:33)
PROC: 0VB08ZX Excision of Prostate, Via Natural or Artificial Opening Endoscopic, Diagnostic (ICD-10-PCS; 2025-02-24 13:33)
DX: N40.1 Benign prostatic hyperplasia with lower urinary tract symptoms (principal); Z68.41 Body mass index [BMI] 40.0-44.9, adult; R31.9 Hematuria, unspecified; E66.01 Morbid (severe) obesity due to excess calories; I25.10 Atherosclerotic heart disease of native coronary artery without angina pectoris; I10 Essential (primary) hypertension; N35.919 Unspecified urethral stricture, male, unspecified site; R97.20 Elevated prostate specific antigen [PSA]; N32.89 Other specified disorders of bladder; E78.5 Hyperlipidemia, unspecified; Z79.82 Long term (current) use of aspirin; Z79.02 Long term (current) use of antithrombotics/antiplatelets; Z83.3 Family history of diabetes mellitus; Z82.49 Family history of ischemic heart disease and other diseases of the circulatory system; Z95.5 Presence of coronary angioplasty implant and graft
CPT/HCPCS: 36415; 71046; 74420; 76872; 76998; 80048; 83735; 85025; 88305; 93005; 94799; C1758; J1100; J1308; J1580; J2003; J2250; J2371; J2405; J2470; J2543; J7030

== ENCOUNTER → 2025-05-15 | Day surgery (SDC) | payer BC, MEDICARE ==
[2025-05-12 14:27] LABS: BASOPHILS % 1.2 % (0.0-1.0); EOSINOPHILS % 11.6 % (0.0-6.0); LYMPHOCYTES % 24.1 % (18.0-39.1); MONOCYTES % 6.9 % (4.4-11.3); NEUTROPHILS % 56.0 % (38.7-80.0); RED CELL DISTRIBUTION WIDTH 13.0 % (11.7-14.4)
[~2025-05-15] MED LIST changes: +ATENOLOL25 MG
[2025-05-15] MEDS: LACTATED RINGER'S 1,000 ML ONE (12:41)
[2025-05-15 13:25] VITALS: BP 124/81; PULSE 71; RESP 18; TEMP 97.6; O2SAT 97
== END | disposition home or self-care (01) ==
LOC: OR 10:39
PROVIDERS: ATTEND Internal Medicine Gastroenterology
DX: K29.50 Unspecified chronic gastritis without bleeding (principal); D12.2 Benign neoplasm of ascending colon; K20.90 Esophagitis, unspecified without bleeding; K57.30 Diverticulosis of large intestine without perforation or abscess without bleeding; K64.8 Other hemorrhoids; I10 Essential (primary) hypertension; E78.00 Pure hypercholesterolemia, unspecified; E66.813 Obesity, class 3; Z68.41 Body mass index [BMI] 40.0-44.9, adult; Z96.652 Presence of left artificial knee joint; Z79.02 Long term (current) use of antithrombotics/antiplatelets; Z79.82 Long term (current) use of aspirin; Z79.899 Other long term (current) drug therapy; Z01.810 Encounter for preprocedural cardiovascular examination; Z01.812 Encounter for preprocedural laboratory examination
CPT/HCPCS: 36415; 43239; 45378; 45385; 85025; 93005; J2470